=== PATIENT | female | born 1950 | race Caucasian/White ===

== ENCOUNTER 2020-05-26 06:10 | Outpatient (REF) | payer MEDICARE, SELFPAY ==
[2020-05-26 11:14] LABS: Hematocrit 45.3 % (37-47); Hemoglobin 15.2 g/dl (12.0-16.0); Mean Corpuscular HGB Conc 33.6 g/dl (31.0-35.0); Mean Corpuscular Hemoglobin 29.7 pg (27.0-33.0); Mean Corpuscular Volume 88.6 fL (80-98); Mean Platelet Volume 10.9 fL (9.4-12.3); Platelet Count 213 X10*3/uL (160-400); Red Blood Count 5.11 X10*6/uL (4.20-5.50); Red Cell Distribution Width 12.5 % (11.0-16.0); White Blood Count 4.6 X10*3/uL (4.8-10.8)
[2020-05-26 12:01] LABS: Alanine Aminotransferase 23 U/L (0-31); Albumin Level 4.3 g/dL (3.5-5.0); Alkaline Phosphatase 80 U/L (39-117); Anion Gap 13 (12-20); Aspartate Amino Transferase 22 U/L (5-31); Bilirubin Direct 0.3 mg/dL (0.0-0.5); Bilirubin Total 0.7 mg/dL (0.0-1.0); Blood Urea Nitrogen 20 mg/dL (9-16); Calcium 9.2 mg/dL (8.4-10.2); Carbon Dioxide 25 mmol/L (22-29); Chloride 104 mmol/L (96-108); Cholesterol 240 mg/dL; Estimated Glomerular Filt Rate > 60; Glucose Fasting 86 mg/dL (60-99); HDL Cholesterol 101 mg/dL; LDL Cholesterol Calculated 129 mg/dl; Magnesium 2.1 mg/dL (1.6-2.6); Potassium 4.2 mmol/l (3.3-5.1); Sodium 138 mmol/L (135-145); Total Protein 6.7 g/dL (6.5-8.0); Triglycerides 54 mg/dL
[2020-05-26 12:21] LABS: Vitamin D 25-OH Total 24.8 ng/mL (>30)
== END 2020-05-26 06:11 | disposition home or self-care (01) ==
LOC: HO.HMGCLDS 06:10
DX: E78.5 Hyperlipidemia, unspecified (principal); Z00.00 Encounter for general adult medical examination without abnormal findings
CPT/HCPCS: 36415; 80053; 80061; 80076; 82248; 82306; 83735; 85027

== ENCOUNTER 2022-01-20 08:22 | Outpatient (REF) | payer MEDICARE, SELFPAY ==
[2022-01-20 11:08] LABS: MANUAL DIFF FLAG NO
[2022-01-20 11:12] LABS: Basophils Percent Auto 0.4 % (0-2); Eosinophils Absolute Auto 0.2 X10*3/uL (0.0-0.4); Eosinophils Percent Auto 2.7 % (0-4); Hematocrit 44.4 % (37.0-47.0); Hemoglobin 15.1 g/dl (12.0-16.0); Imm Gran Abs Auto 0.01 X10*3/uL (0.00-0.03); Imm Gran Pct Auto 0.2 % (0.0-0.4); Lymphocytes Absolute Auto 2.3 X10*3/uL (1.2-4.9); Lymphocytes Percent Auto 41.8 % (20-40); Mean Corpuscular Hemoglobin 29.8 pg (27.0-33.0); Mean Corpuscular Volume 87.7 fL (80.0-98.0); Mean Platelet Volume 10.9 fL (9.4-12.3); Monocytes Absolute Auto 0.5 X10*3/uL (0.1-1.2); Monocytes Percent Auto 8.5 % (2-11); Neutrophils Absolute Auto 2.6 x10*3/uL (2.0-8.3); Neutrophils Percent Auto 46.4 % (45-73); Platelet Count 215 X10*3/uL (160-400); Red Blood Count 5.06 X10*6/uL (4.20-5.50); Red Cell Distribution Width 12.3 % (11.0-16.0); White Blood Count 5.5 X10*3/uL (4.8-10.8)
[2022-01-20 11:25] LABS: Alanine Aminotransferase 16 U/L (0-31); Albumin Level 4.4 g/dL (3.5-5.0); Alkaline Phosphatase 81 U/L (39-117); Anion Gap 13 (12-20); Aspartate Amino Transferase 18 U/L (5-31); Bilirubin Total 0.8 mg/dL (0.0-1.0); Blood Urea Nitrogen 24 mg/dL (9-16); Calcium 9.7 mg/dL (8.4-10.2); Carbon Dioxide 24 mmol/L (22-29); Chloride 106 mmol/L (96-108); Estimated Glomerular Filt Rate > 60; Glucose Random 94 mg/dL (60-115); Potassium 3.7 mmol/L (3.3-5.1); Sodium 139 mmol/L (135-145)
[2022-01-20 11:42] LABS: Estimated Average Glucose 103 mg/dL; Hemoglobin A1c % 5.2 %
[2022-01-20 11:47] LABS: TSH reflex Free T4 1.57 uIU/mL (0.32-4.0)
[2022-01-22 12:51] LABS: LDL Cholesterol Direct 131 mg/dL (<100)
== END 2022-01-20 08:23 | disposition home or self-care (01) ==
LOC: HO.HMGCLDS 08:22
PROVIDERS: PCP Internal Medicine; Visit Provider Internal Medicine
DX: R03.0 Elevated blood-pressure reading, without diagnosis of hypertension (principal); R35.0 Frequency of micturition; R51.9 Headache, unspecified
CPT/HCPCS: 36415; 80053; 83036; 83721; 84443; 85025

== ENCOUNTER 2023-04-22 09:33 | Outpatient (AMB) | payer MEDICARE, SELFPAY ==
--- NOTE | 2023-04-22 10:21 | MHC.OFFWIV ---
Intake Vital Signs 04/22/23 10:26 Height 5 ft 1 in Weight 50.802 kg BMI 21.2 BP 140/80 H Blood Pressure Location Lt brachial Position Sitting Pulse 80 Pulse Source Pulse Oximeter Temp 98.7 F Temp Source Oral Pulse Oximetry (%) 98 Oxygen Delivery Method Room Air Intake Visit Reasons: EP, cough, laryngitis (masked) Intake Note: Pt is here today for a cough and laryngitis Patient Tobacco Use Status: Never used Tobacco Allergies No Known Allergies Allergy (Mild, Verified 04/22/23 10:27) NONE Do you need a note to return to daycare/school/sports/work: No HPI HPI Comments History of Present Illness Details This is a 73-year-old female presenting to the clinic for evaluation of fatigue, malaise, cough productive of thick phlegm for the past few weeks patient reports symptoms 1st started on March 22, they initially were improving however seem to be getting worse over the past few days. Patient reports symptoms are worse at night. No associated fevers, chills, chest pain, shortness of breath, nausea, vomiting, diarrhea, headache, vision changes, dizziness. Has been at home now sick with similar symptoms. Physical exam benign Likely bronchitis due to a length of symptoms. Other differentials include viral illness. Unlikely PE, pneumonia, ACS. No signs of acute respiratory discharge Plan will discharge home with prednisone, doxycycline, albuterol and benzonatate Perles for cough. Educated patient on diagnosis and treatment plan, answered all question, patient verbalizes understanding. At this time patient will be discharged home, advised to return with new or worsening symptoms. Educated on worrisome signs and symptoms and when to return. At this time I feel comfortable discharge home. PFSH Family History Brother Substance use disorder Mental health disorder Social History Housing: House Alcohol intake: current Alcohol intake frequency: holidays/special occasions only Patient Tobacco Use Status: Never used Tobacco e-Cigarette/Vaping Use: Never Used service: No Current occupational status: retired Cognitive needs: No Hearing needs: No Vision needs: Yes Review of Systems Const Details: Constitutional : No Weight loss, No Fever, No Chills, +Fatigue, + Malaise ENT/Mouth : No sore throat, No Rhinorrhea Eyes: No Eye Pain, No Swelling, No Redness Cardiovascular : No Chest Pain, No SOB, No Dyspnea on Exertion, No Orthopnea, No Edema, No Palpitations Respiratory : + Cough, No Sputum, No Wheezing Gastrointestinal : No Nausea, No Vomiting, No Diarrhea, No Constipation, No abdominal Pain, No Hematochezia, No Melena Genitourinary : No Dysuria, No Urinary Frequency, No Hematuria, Musculoskeletal : No joint pain, No Myalgias, No Joint Swelling Skin : No Skin Lesions, No rash Neuro : No Weakness, No Numbness, No Dizziness, No Headache Psych : No Anxiety/Panic, No Depression All other systems reviewed and are negative All systems reviewed & are unremarkable except as noted in HPI and below Physical Exam Vital Signs: Last Vital Signs Temp 98.7 F 04/22/23 10:26 Pulse 80 04/22/23 10:26 BP 140/80 H 04/22/23 10:26 Pulse Ox 98 04/22/23 10:26 Oxygen Delivery Method Room Air 04/22/23 10:26 BMI result Body Mass Index 21.2 vss Appearance: Alert.? Oriented X3.? No acute distress.? Head: Normocephalic, atraumatic, no step-offs or deformities Eyes: Pupils equal, round and reactive to light.? ENT: Pharynx normal.?Midline uvula. Normal tonsils b/l. No exudate or edema Neck: Normal inspection.? Neck supple.? CVS: Normal heart rate and rhythm.? Pulses normal.? Respiratory: No respiratory distress.? Breath sounds normal.? Abdomen: Soft and nontender.? Skin: Skin warm and dry.? Normal skin color.? Normal skin turgor.? Extremities: No lower extremity edema.? No calf ttp. 5/5 strength to bilateral upper and lower extremities Neuro: Oriented X 3.? No motor deficit.? No sensory deficit. CN 2-12 intact Assessment & Plan Assessment & Plan (1) Bronchitis: Code(s): J40 - Bronchitis, not specified as acute or chronic Plan Take your medications as prescribed. If you were prescribed antibiotics today, it is important that you take your medication to their entirety, do not skip any doses, do not finish them early. Follow-up with your primary care provider this week. Return to the emergency department with new or worsening symptoms. Such as fevers, chills, chest pain, shortness of breath, nausea, vomiting, dizziness, headache, vision changes, lethargy In case of emergency call 911 Medications: New prednisone 20 mg PO DAILY 5 days 5 tabs 0RF albuterol sulfate 90 mcg/actuation 2 puffs inhalation Q6H PRN 6.7 grams 0RF shortness of breath or wheezing doxycycline hyclate 100 mg PO BID 7 days 14 caps 0RF benzonatate 100 mg PO BID PRN 14 caps 0RF cough Coding Level of Care Code Est Pt Level 3 (97272) Diagnoses Bronchitis J40
[2023-04-22 10:26] VITALS: BP 140/80; PULSE 80; TEMP 37.1; O2SAT 98; BMI 21.2
== END 2023-04-22 14:57 | disposition home or self-care (01) ==
PROVIDERS: PCP Internal Medicine; Visit Provider Physician Assistant
DX: J40 Bronchitis, not specified as acute or chronic (principal)
CPT/HCPCS: 99213

== ENCOUNTER 2023-07-21 07:59 | Outpatient (AMB) | payer MEDICARE, SELFPAY ==
[2023-07-21 08:20] VITALS: BP 130/86; PULSE 69; O2SAT 100; BMI 20.6
--- NOTE | 2023-07-21 08:20 | MHC.PC.OV ---
Vital Signs 07/21/23 08:20 Height 5 ft 1 in Weight 109 lb 4 oz BMI 20.6 Intake Visit Reasons: SWV G0439 04/02/2016 Allergies No Known Allergies Allergy (Mild, Verified 04/22/23 10:27) NONE Tobacco use date assessed: 01/21/22 PFSH Family History Brother Substance use disorder Mental health disorder Social History Housing: House Alcohol intake: current Alcohol intake frequency: holidays/special occasions only Patient Tobacco Use Status: Never used Tobacco e-Cigarette/Vaping Use: Never Used service: No Current occupational status: retired Cognitive needs: No Hearing needs: No Vision needs: Yes Physical exam (Primary Care) Tobacco/Smoking Status: Tobacco use Status Tobacco use date assessed 01/21/22 01/21/22 07:55 Patient Tobacco Use Status Never used Tobacco 04/22/23 10:21 e-Cigarette/Vaping Use Never Used 01/21/22 07:55 Coding
--- NOTE | 2023-07-21 08:23 | A.OFFVIS_ITS ---
Intake Vital Signs 07/21/23 08:20 07/21/23 08:32 Height 5 ft 1 in Weight 109 lb 4 oz BMI 20.6 20.6 BP 130/86 Blood Pressure Location Rt brachial Position Sitting Pulse 69 Pulse Source Pulse Oximeter Pulse Oximetry (%) 100 Oxygen Delivery Method Room Air Intake Visit Reasons: ALLEGRA G0439 04/02/2016 Allergies No Known Allergies Allergy (Mild, Verified 07/21/23 08:24) NONE Medication List - Last Reconciled 07/21/23 by Brendan Casey MD sumatriptan succinate 50 mg PO ONCE PRN 30 days HPI ALLEGRA G0439 04/02/2016 HPI Details Patient is a 73-year-old female who has been having cold-like symptoms for the past 3 weeks She said it started with sore throat than mild cough and then chest congestion then she lost the taste Patient still do not have any taste and is having yellow nasal discharge with mild chest congestion no chest pains no shortness a breath No nausea but mild diarrhea is there Patient has not had any recent COVID boosters She has not been tested for COVID as well Patient says that she does not want any immunizations She declined colonoscopy Declined mammogram Declined labs I am treating her with azithromycin Patient is to push fluids and may take [id number] cold remedies. HPI Comments History of Present Illness Details AWV Medical/social history reviewed Past medical history reviewed [place] of care / care team list updated Surgical/ hospitalization history reviewed Current medications including OTC and supplements reviewed Family history reviewed Tobacco controlled form updated Alcohol use form updated Illicit drug use in social history reviewed Current diagnosis of depression ?screening updated Appropriate PHQ 2/PHQ-9 completed . Vital signs reviewed Alcohol tobacco drug use reviewed and discussed . MMSE completed . ? Fall risk: ?Assessed Fall history: ?None Have you had any falls with injury in the past year?? No Have you had 2 or more falls in the past year?? No Fall risk assessment completed Home safety discussed with the patient Functional ability assessed and discussed and documented Activities of daily living reviewed and appropriate actions taken . HRA filled out by the patient and reviewed by provider and scanned . Appropriate written screening schedule established . Any health advise needed provided . Advance care planning discussed with the patient , necessary paperwork filled Examination IPPE/AWE: Balance intact [place]berg intact Tandem walk intact walk-in turn intact rise from sit to stand intact . ?Hearing ?whisper test pass . Medication list reviewed, patient is stable on medications All other providers patient is seeing discussed and noted . PFSH Family History Brother Substance use disorder Mental health disorder Social History Housing: House Alcohol intake: current Alcohol intake frequency: holidays/special occasions only Patient Tobacco Use Status: Never used Tobacco e-Cigarette/Vaping Use: Never Used service: No Current occupational status: retired Cognitive needs: No Hearing needs: No Vision needs: Yes Questionnaire Medicare Wellness Checkup [age] What gender do you identify with?: female During the past 4 weeks, how much have you been bothered by emotional problems such as feeling anxious, depressed, irritable, sad or downhearted, and blue?: not at all During the past 4 weeks, has your physical & emotional health limited your social activities with family, friends, neighbors, or groups?: slightly During the past 4 weeks, how much bodily pain have you generally had?: no pain During the past 4 weeks, was someone available to help you if you needed & wanted help?: yes, as much as I wanted During the past 4 weeks, what was the hardest physical activity you could do for at least 2 minutes?: very light Can you get to places out of walking distance without help? (For eg., can you travel alone on buses, taxis or drive your car?): Yes Can you go shopping for groceries or clothes without someone's help?: Yes Can you prepare your own meals?: Yes Can you do your housework without help?: Yes Because of any health problems, do you need the help of another person with your personal care needs such as eating, bathing, dressing or getting around the house?: No Can you handle your own money without help?: Yes During the past 4 weeks, how would you rate your health in general?: very good During the past 4 weeks how have things been going for you?: very well; could hardly better Are you having difficulties driving your car?: no Do you always fasten your seat belt when you are in a car?: yes, usually During past 4 weeks, have you been bothered by the following: never: Falling or dizzy when standing up, Sexual problems?, Trouble eating well? and Problems using the telephone? and seldom: Teeth or denture problems? and Tiredness or fatigue? Have you fallen 2 or more times in the past year?: Yes Are you afraid of falling?: No Are you a smoker?: no During the past 4 weeks, how many drinks of wine, beer, or other alcoholic beverages did you have?: 1 drink or less per week Do you exercise for about 20 minutes 3 or more times a week?: yes, most of the time Have you been given information to help with the following?: no: Hazards in your house that might hurt you? and no: Keeping track of your medications? How often do you have trouble taking medicines the way you have been told to take them?: I do not have to take medicine How confident are you that you can control & manage most of your health problems?: very confident What is your race?: White Mini Mental State Exam (MMSE) Orientation What is the (year) (season) (date) (day) (month)?: year, season, date, day and month Where are we (state) (county) (town or city) (hospital) (floor)?: state, county, town or city, hospital/clinic and floor Score Score: 10 Activity of Daily Living Bathing - sponge bath, tub bath or shower: receives no assistance (gets in/out by self, if usual bathing means Dressing - getting clothes from closets & drawers, including inner/outer garments & fasteners.: gets clothes & gets completely dressed without help Toileting - going to the 'toilet room' for urine/bowel elimination & cleaning self/arranging clothes: goes to toilet room, cleans self, arranges clothes without help Transfer: moves in & out of bed and chair without help (may use support object) Continence: controls urination/bowel movements completely by self Feeding: feeds self without help Total Score: 0 Information obtained from: patient Using telephone: independent Traveling: independent Shopping: independent Preparing meals: independent Housework: independent Taking medicine: independent Managing money: independent PHQ-9 Over the last 2 weeks, how often have you been bothered by any of the following problems? 1. Little interest or pleasure in doing things: several days 2. Feeling down, depressed, or hopeless: not at all 3. Trouble falling or staying asleep, or sleeping too much: several days 4. Feeling tired or having little energy: several days 5. Poor appetite or overeating: several days 6. Feeling bad about yourself - or that you are a failure or have let yourself or your family down: not at all 7. Trouble concentrating on things, such as reading the newspaper or watching television: not at all 8. Moving or speaking so slowly that other people could have noticed. Or the opposite - being so fidgety or restless that you have been moving around a lot more than usual: not at all 9. Thoughts that you would be better off or of hurting yourself in some way: not at all Total score: 4 Source: Developed by Drs. Carlos La, Megan Chávez, Brian Hdez and colleagues, with an educational pete from [employer]. Review of Systems Const All systems reviewed & are unremarkable except as noted in HPI and below Physical Exam Vital Signs: Last Vital Signs Pulse 69 07/21/23 08:20 BP 130/86 07/21/23 08:20 Pulse Ox 100 07/21/23 08:20 Oxygen Delivery Method Room Air 07/21/23 08:20 BMI result Body Mass Index 20.6 Const General: no acute distress HEENT Other: Mild throat erythema present, uvula midline, no exudate. Ears: mastoids normal General nose exam: Normal external nose present Throat: Yes posterior oropharynx abnormal Neck Neck: Yes no lymphadenopathy Resp Effort & Inspection: normal respiratory effort Auscultation: clear to auscultation bilaterally Cardio Other: S1 S2 Psych Mental Status: mental status grossly normal Assessment & Plan Assessment & Plan (1) Medicare annual wellness visit, subsequent: Code(s): Z00.00 - Encounter for general adult medical examination without abnormal findings (2) URI with cough and congestion: Code(s): J06.9 - Acute upper respiratory infection, unspecified Plan Patient is a 73-year-old female who has been having cold-like symptoms for the past 3 weeks She said it started with sore throat than mild cough and then chest congestion then she lost the taste Patient still do not have any taste and is having yellow nasal discharge with mild chest congestion no chest pains no shortness a breath No nausea but mild diarrhea is there Patient has not had any recent COVID boosters She has not been tested for COVID as well Patient says that she does not want any immunizations She declined colonoscopy Declined mammogram Declined labs I am treating her with azithromycin Patient is to push fluids and may take [id number] cold remedies. Medications: New azithromycin Take 2 tablets today then 1 daily 250 mg PO ONCE 6 tabs 0RF 5 days J06.9 - Acute upper respiratory infection, unspecified Quality Reporting (2019) Depression/Bipolar (159/160/161/177) PHQ-9: Total score: 4 Coding Level of Care Code Medicare Subsequent (G0439) Est Pt Level 3 (42812) Diagnoses Medicare annual wellness visit, subsequent Z00.00 URI with cough and congestion J06.9
[2023-07-21 08:32] VITALS: BMI 20.6
== END 2023-07-21 08:59 | disposition home or self-care (01) ==
PROVIDERS: PCP Internal Medicine; Visit Provider Internal Medicine
DX: Z00.00 Encounter for general adult medical examination without abnormal findings (principal); J06.9 Acute upper respiratory infection, unspecified
CPT/HCPCS: 99213; G0439

== ENCOUNTER 2024-05-09 08:00 | Outpatient (AMB) | payer MEDICARE, SELFPAY ==
[2024-05-09 08:08] VITALS: BP 128/80; PULSE 77; TEMP 36.6; O2SAT 98; BMI 20.8
--- NOTE | 2024-05-09 08:08 | AM.OFFWIN_ITS ---
Intake Vital Signs 05/09/24 08:08 Height 5 ft 1 in Weight 110 lb BMI 20.8 BP 128/80 Blood Pressure Location Rt brachial Position Sitting Pulse 77 Pulse Source Pulse Oximeter Temp 97.8 F Temp Source Oral Pulse Oximetry (%) 98 Oxygen Delivery Method Room Air Intake Visit Reasons: EP sinus congestion, cold symptoms Intake Note: Patient here for sinus congestion and cough that has been present since Apr 20. Patient Tobacco Use Status: Never used Tobacco Allergies No Known Allergies Allergy (Mild, Verified 05/09/24 08:11) NONE Do you need a note to return to daycare/school/sports/work: No HPI EP sinus congestion, cold symptoms HPI Details This note is constructed using voice recognition software. While every effort has been made to ensure accuracy, bullard operator errors may have been included. The patient is a 74 year old female who presents to the clinic today with concern for sinus infection. She notes that she has been having a cough and sinus congestion for the past nearly 3 weeks, that do not seem to be getting better. She denies fever, chills, shortness of breath. She reports that the sinus pressure is in the maxillary area left more than right, and feels like pressure pushing down into her teeth. She has been taking [id number] decongestants, and cough syrup to help with the cough. PFSH Family History Brother Substance use disorder Mental health disorder Social History Housing: House Alcohol intake: current Alcohol intake frequency: holidays/special occasions only Patient Tobacco Use Status: Never used Tobacco e-Cigarette/Vaping Use: Never Used service: No Current occupational status: retired Cognitive needs: No Hearing needs: No Vision needs: Yes Review of Systems Const All systems reviewed & are unremarkable except as noted in HPI and below Physical Exam Vital Signs: Last Vital Signs Temp 97.8 F 05/09/24 08:08 Pulse 77 05/09/24 08:08 BP 128/80 05/09/24 08:08 Pulse Ox 98 05/09/24 08:08 Oxygen Delivery Method Room Air 05/09/24 08:08 BMI result Body Mass Index 20.8 Const General: cooperative, healthy appearing, comfortable and no acute distress Orientation/consciousness: patient oriented x3 Limitations: no limitations HEENT Head: Yes normal to inspection Ears: hearing grossly normal bilaterally, external ears normal and TM's normal bilaterally General nose exam: Normal external nose present, Normal nares present, Abnormal mucous membranes and turbinates present erythematous and Nasal discharge present purulent Face and sinus: Yes normal facial exam and Yes sinus tenderness Mouth: Normal oral and palatal mucosa present and moist mucous membranes Throat: Yes posterior oropharynx normal, Yes tonsils normal and Yes uvula midline Eyes General: appearance normal, both eyes and all related structures Neck Neck: Yes normal visual inspection Resp Effort & Inspection: normal respiratory effort, able to speak in complete sentences, Actively coughing, no respiratory distress, not tachypneic, no tripod positioning and no use of accessory muscles Auscultation: clear to auscultation bilaterally Cardio Rate: regular rate Rhythm: regular rhythm Heart sounds: normal S1 and S2 Skin General skin exam: no rashes or lesions noted Neuro General: patient oriented x3 Extrem General: Yes normal to inspection and Yes no clubbing, cyanosis or edema Assessment & Plan Assessment & Plan (1) Sinusitis: Code(s): J32.9 - Chronic sinusitis, unspecified Qualifiers: Sinusitis location: maxillary Chronicity: acute Recurrence: non- recurrent Qualified Code(s): J01.00 - Acute maxillary sinusitis, unspecified Plan: Supportive measures encouraged and reviewed. Advised consideration of sinus rinse if needed. Antibiotic sent to requested pharmacy, advised patient to take antibiotics until completed and not to stop if feeling better, unless the patient has side effects. Advised patient to follow up with primary care provider with worsening or failure to resolve. Plan See above for full details and plan. Medications: New amoxicillin-pot clavulanate 875-125 mg 1 tab PO BID 10 days 20 tabs 0RF Coding Level of Care Code Est Pt Level 3 (58392) Diagnoses Acute non-recurrent maxillary sinusitis J01.00 Sinusitis location: maxillary Chronicity: acute Recurrence: non-recurrent
== END 2024-05-09 08:45 | disposition home or self-care (01) ==
PROVIDERS: PCP Internal Medicine; Visit Provider Registered Nurse
DX: J01.00 Acute maxillary sinusitis, unspecified (principal)

== ENCOUNTER → 2024-05-09 08:00 | Outpatient (BNVA) | payer MEDICARE, SELFPAY | PROVIDERS: PCP Internal Medicine; Visit Provider Registered Nurse | DX: J01.00 Acute maxillary sinusitis, unspecified (principal) | CPT/HCPCS: 99212 ==

== ENCOUNTER 2024-06-10 07:59 | Outpatient (REF) | payer MEDICARE, SELFPAY ==
[2024-06-10 11:08] LABS: Influenza A PCR NEGATIVE (Negative); Influenza B PCR NEGATIVE (Negative); Resp Syncy Virus RNA Qual PCR NEGATIVE (Negative); SARS COV2 PCR INHOUSE NEGATIVE (Negative)
--- OUTSIDE RECORDS SUMMARY | 2024-06-12 12:55 | XMS_ITS | Data Portability ---
Author Organization [place] - [facility] Address [address] [address] Assessment No assessment recorded. Plan of Treatment [...] instructions recorded. Reason for Referral None Reported. Results Created Date Observation Date Name Description Value Unit Range Abnormal Flag Note LastModifiedBy Organization Detail LastModifiedTime 02/21/2004/05/2023 imagi ng/di agnos tic resul t No observ ation record ed. [email or web address] Not Available 18:02:07 02/21/2004/05/2023 imagi ng/di agnos tic resul t No observ ation record ed. [email or web address] Not Available 18:02:10 02/21/20 24 08/11/2023 audio gram No observ ation record ed. [email or web address] Not Available 18:02:18 02/21/20 24 04/05/2023 audio gram No observ ation record ed. [email or web address] Not Available 18:02:22 02/21/20 24 04/28/2023 audio gram No observ ation record ed. [email or web address] Not Available 18:02:23 02/21/20 24 05/05/2023 audio gram No observ ation record ed. [email or web address] Not Available 18:02:24 02/21/20 24 05/23/2023 audio gram No observ ation record ed. [email or web address] Not Available 18:02:31 Result Notes None recorded. Problems Name Problem SNOMED Code Status Onset Date Resolution Date Notes Provider Name and Address Organization Details Recorded Time Sensorine ural hearing loss of bilateral ears [id number] Active 2022 Sensorine ural hearing loss, bilateral ; Note: Date Diagnosed : 04/05/2023 10:13 AM (H90.3) Not Available [facility] 03:24:21 Bilateral tinnitus 05860240052 02 Active 2022 Tinnitus, bilateral ; Note: Date Diagnosed : 04/05/2023 10:13 AM (H93.13) Not Available [facility] 03:24:21 Problem Notes None recorded. Procedures Surgical History None recorded. Imaging Results Imaging Date Name Status LastModified by Organiz ation Details LastModified Time 04/05/2023 imaging/diagno stic result completed Information not available 02/21/2024 18:02:07 04/05/2023 imaging/diagno stic result completed Information not available 02/21/2024 18:02:10 08/11/2023 audiogram completed Information not available 02/21/2024 18:02:18 04/05/2023 audiogram completed Information not available 02/21/2024 18:02:22 04/28/2023 audiogram completed Information not available 02/21/2024 18:02:23 05/05/2023 audiogram completed Information not available 02/21/2024 18:02:24 05/23/2023 audiogram completed Information not available 02/21/2024 18:02:31 Procedure Notes None recorded. Medical Equipment None Reported. [...] Diagnosis/Indication Diagnosis SNOMED-CT Code Diagnosis ICD10 Code [id number] A[facility]LIO FIT[facility]PAT[facility] [place] 100 [facility],[address] [place] [address] 02/09/2024 10:39:41 02/12/2024 07:15:44 Sensorineural hearing loss of bilateral ears [id number] H90.3 [id number] AURELIO FITZPATRICK [facility] [place] 100 [facility], [address] [place] [address] 05/03/2024 13:41:10 05/06/2024 07:06:28 Sensorineural hearing loss of bilateral ears 338944127 H90.3 Health Concerns Section Related Observation LastModified by Organization Detai ls LastModified Time None Recorded Concern Status LastModified by Organization Details LastModified Time None Recorded Advance Directives Directive None Recorded Payers Encounter Date Sequence Insurance Name Policy Number Policy Jones Covered Member ID Jones Member ID Guarantor Name 02/09/2024 2 [employer] HEALTHCARE OPTIONS (MEDICARE SUPPLEMENT) Vivian Shepard [id number] Vivian Shepard 02/09/2024 1 [place] [employer] GOVERNMENT SERVICES Vivian Shepard [id number] Vivian Shepard 05/03/2024 2 [employer] HEALTHCARE OPTIONS (MEDICARE SUPPLEMENT) Vivian Shepard [id number] Vivian Shepard 05/03/2024 1 [place]ATIONAL GOVERNMENT SERVICES Vivian Shepard [id number] Vivian Shepard Notes Date Note Type Note Provider Name and Address Organization Details Recorded Time 02/09/2024 text/html Concerns: Feels her own voice in tinny datalogging: dropped to 4 hours. Counseled on how this is most likely the cause of her voice being tinny but we can also make some changes to help tackle the issue in the mean time. Check/clean: GWO before and after cleaning .Changed filters and domes. Adjustments: decreased compressions ratios of HFs and decreased mid-high frequency 2 steps. She feels that her voice feels deeper after this change. FU: I want to see her again in 3 months to check on the changes I made today with the expectation that she is going to wear them more as well. CHRIS HUERTA, [facility] 100 [facility],[address], [address], [place] - [facility] 02/09/2024 11:03:02 05/03/2024 text/html Checking datalogging to make sure [...] No adjustments done today. Firmware updated.FU: Annuals. CHRIS HUERTA, [facility] 100 [facility],[place] [address], [place], [address], [place] - [facility] 05/03/2024 14:07:43 OBGyn Episode No OBEpisode recorded.
== END 2024-06-10 08:00 | disposition home or self-care (01) ==
LOC: HO.LAB 07:59
PROVIDERS: PCP Internal Medicine; Visit Provider Registered Nurse
DX: J06.9 Acute upper respiratory infection, unspecified (principal)
CPT/HCPCS: 0241U; 99212

== ENCOUNTER 2024-06-10 07:59 | Outpatient (AMB) | payer MEDICARE, SELFPAY ==
--- NOTE | 2024-06-10 08:02 | MHC.OFFWIV ---
Intake Vital Signs 06/10/24 08:03 Height 5 ft 1 in Weight 111 lb BMI 21.0 BP 130/82 Blood Pressure Location Rt brachial Position Sitting Pulse 86 Pulse Source Pulse Oximeter Temp 98.2 F Temp Source Oral Pulse Oximetry (%) 98 Oxygen Delivery Method Room Air Intake Visit Reasons: EP Sinus congestion Intake Note: Patient here for sinus congestion, runny nose and headache that has been present for about 2 weeks. Patient Tobacco Use Status: Never used Tobacco Allergies No Known Allergies Allergy (Mild, Verified 06/10/24 08:05) NONE Do you need a note to return to daycare/school/sports/work: No HPI EP Sinus congestion HPI Details This note is constructed using voice recognition software. While every effort has been made to ensure accuracy, commercial finance manager errors may have been included. The patient is a 74 year old female who presents to the clinic today with complaints of sinus congestion, runny nose, headache, mild sore throat with a past to 3 days. She notes that she was recently treated for a sinus infection about a month ago, symptoms got better. She denies fever, chills, cough, shortness of breath, body aches. 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 Her is also ill, with similar symptoms. She not tried any otc treatment. [facility] Family History Brother Substance use disorder Mental health disorder Social History Housing: House Alcohol intake: current Alcohol intake frequency: holidays/special occasions only Patient Tobacco Use Status: Never used Tobacco e-Cigarette/Vaping Use: Never Used service: No Current occupational status: retired Cognitive needs: No Hearing needs: No Vision needs: Yes Review of Systems Const All systems reviewed & are unremarkable except as noted in HPI and below Physical Exam Vital Signs: Last Vital Signs Temp 98.2 F 06/10/24 08:03 Pulse 86 06/10/24 08:03 BP 130/82 06/10/24 08:03 Pulse Ox 98 06/10/24 08:03 Oxygen Delivery Method Room Air 06/10/24 08:03 BMI result Body Mass Index 21.0 Const General: cooperative, healthy appearing, comfortable and no acute distress Orientation/consciousness: patient oriented x3 Limitations: no limitations HEENT Head: Yes normal to inspection Ears: hearing grossly normal bilaterally, external ears normal and TM's normal bilaterally General nose exam: Normal external nose present, Normal nares present and No nasal discharge present Face and sinus: Yes normal facial exam and Yes sinuses nontender Mouth: Normal oral and palatal mucosa present and moist mucous membranes Throat: Yes tonsils normal, Yes uvula midline and Yes posterior oropharynx abnormal (Erythema) Eyes General: appearance normal, both eyes and all related structures Neck Neck: Yes normal visual inspection Resp Effort & Inspection: normal respiratory effort, able to speak in complete sentences, Actively coughing, no respiratory distress, not tachypneic, no tripod positioning and no use of accessory muscles Auscultation: clear to auscultation bilaterally Cardio Jugular venous distension: no JVD Rate: regular rate Rhythm: regular rhythm Heart sounds: S1 normal heart sound present, S2 normal heart sound present, no click, no gallops, no murmurs and no rubs Skin General skin exam: no rashes or lesions noted, elasticity normal and turgor normal Neuro General: patient oriented x3 Extrem General: Yes normal to inspection and Yes no clubbing, cyanosis or edema Assessment & Plan Assessment & Plan (1) Upper respiratory tract infection: Code(s): J06.9 - Acute upper respiratory infection, unspecified Qualifiers: URI type: unspecified URI Qualified Code(s): J06.9 - Acute upper respiratory infection, unspecified Plan: Viral swab obtained to rule out Covid, Influenza, and RSV based on symptoms. Advised mask wearing while symptomatic and quarantine per current CDC guidelines. Reviewed at home support methods including hydration, humidification, vix vapor rub, sinus rinse, and otc treatment options. Discussed treatment with antiviral therapy for covid with paxlovid and with Tamiflu for influenza, including appropriate use and side effects, and need to start medication within 5 day of symptom onset, preferably within 48 hours of symptom onset. Patient wishes to proceed decline antiviral therapy. Advised follow up with worsening symptoms such as dyspnea at rest, which would require emergent evaluation. Plan See above for full details and plan. Orders: Orders SARS-CoV2/FLU/RSV Today J06.9 - Acute upper respiratory infection, unspecified Coding Level of Care Code Est Pt Level 3 (33212) Diagnoses Upper respiratory tract infection, unspecified type J06.9 URI type: unspecified URI
[2024-06-10 08:03] VITALS: BP 130/82; PULSE 86; TEMP 36.8; O2SAT 98; BMI 21.0
--- OUTSIDE RECORDS SUMMARY | 2024-06-12 12:44 | XMS_ITS | Continuity of Care Document ---
Author Organization [place] - [facility] Address [address] [address] Assessment No assessment recorded. Plan of Treatment Reminders Order Date Submit Date Provider Last Modified By Organization Details Last Modified Time Details Appointments None record ed. Lab None record ed. Referral None record ed. Procedures None record ed. Surgeries None record ed. Imaging None record ed. Medication Orders None record ed. Patient TargetsNo targets recorded. Patient InstructionsNo instructions recorded. Reason for Referral None Reported. Problems Name Problem SNOMED Code Status Onset Date Resolution Date Notes Provider Name and Address Organization Details Recorded Time Sensorine ural hearing loss of bilateral ears 522723278 Active 2022 Sensorine ural hearing loss, bilateral ; Note: Date Diagnosed : 04/05/2023 10:13 AM (H90.3) Not Available formerly [facility] 4 03:24:21 Bilateral tinnitus 12118836584 02 Active 2022 Tinnitus, bilateral ; Note: Date Diagnosed : 04/05/2023 10:13 AM (H93.13) Not Available formerly [facility] 4 03:24:21 Problem Notes None recorded. Medical Equipment None Reported. Medications Name Sig Start Date Stop Date Status Note LastModified by Organization Details LastModified Time azithromycin 250 mg tablet FOLLOW DIRECTIONS ON PACKAGING active Not Available Not Available No t Available valacyclovir 1 gram tablet TAKE 1 TABLET BY MOUTH THREE TIMES DAILY FOR 7 DAYS active Not Available Not Available N ot Available sumatriptan 50 mg tablet TAKE 1 TABLET BY MOUTH ONCE NEEDED FOR MIGRAINE TAKE WITH 1 ALEVE active Not Available Not Available No t Available doxycycline hyclate 100 mg tablet TAKE 1 TABLET BY MOUTH TWICE DAILY WITH FOOD AND A GLASS OF WATER FOR 10 DAYS active Not Available Not Available No t Available Vitals None Recorded Social History None recorded. Functional Status None recorded. Mental Status None recorded. Family History Nothing Reported. Medical History No medical history recorded. Gynecological HistoryNo gynecological history recorded. Obstetrics History GPAL:G 0 P 0 0 0 0 Past Encounters Encounter ID Performer Location Encounter Start Date Encounter Closed Date Diagnosis/Indication Diagnosis SNOMED-CT Code Diagnosis ICD10 Code [id number] CHRIS HUERTA [facility] [place] [address] [place] [address] 05/03/2024 13:41:10 05/06/2024 07:06:28 Sensorineural hearing loss of bilateral ears 613742636 H90.3 Health Concerns Section Related Observation LastModified by Organization Detai ls LastModified Time None Recorded Concern Status LastModified by Organization Details LastModified Time None Recorded Payers Encounter Date Sequence Insurance Name Policy Number Policy Jones Covered Member ID Jones Member ID Guarantor Name 05/03/2024 2 [employer] HEALTHCARE OPTIONS (MEDICARE SUPPLEMENT) Vivian Shepard [id number] Vivian Shepard 05/03/2024 1 [place] [employer] Vivian Shepard [id number] Vivian Shepard Notes Date Note Type Note Provider Name and Address Organization Details Recorded Time 05/03/2024 text/html Checking datalogging to make sure she is wearing them more often and that her voice sounds better.Concerns: No concerns today. She did note that she sometimes doesn't hear the start up tune, but I let her know that as long as she is hearing the microphones scratch thye are working.Check/teodoro n: Changed filters and domes, brushed microphones. GWO before and after cleaning.Adjustmen ts: No adjustments done today. Firmware updated.FU: Annuals. AURELIO FITZPATRICK 100 [facility], [place], [address], [facility] - [facility] 05/03/2024 14:07:43 OBGyn Episode No OBEpisode recorded.
== END 2024-06-10 08:44 | disposition home or self-care (01) ==
PROVIDERS: PCP Internal Medicine; Visit Provider Registered Nurse
DX: J06.9 Acute upper respiratory infection, unspecified (principal)

== ENCOUNTER 2024-06-20 08:04 | Outpatient (AMB) | payer MEDICARE, SELFPAY ==
--- OUTSIDE RECORDS SUMMARY | 2024-06-20 08:06 | XMS_ITS | Continuity of Care Document ---
Author Organization [place] - [facility] Address [address] [address] Assessment No assessment recorded. Plan of Treatment [...] Sensorine ural hearing loss of bilateral ears [id number] Active 2022 Sensorine ural hearing loss, bilateral ; Note: Date Diagnosed : 04/05/2023 10:13 AM (H90.3) Not Available [facility] 4 03:24:21 Bilateral tinnitus 97048945873 02 Active 2022 Tinnitus, bilateral ; Note: Date Diagnosed : 04/05/2023 10:13 AM (H93.13) Not Available [facility] 4 03:24:21 Problem Notes None recorded. Medical [...] Diagnosis/Indication Diagnosis SNOMED-CT Code Diagnosis ICD10 Code [id number] CHRIS HUERTA [facility] [place] [address] [place],[address] [place] [address] 05/03/2024 13:41:10 05/06/2024 07:06:28 Sensorineural hearing loss of bilateral ears 525696971 H90.3 Health Concerns Section Related Observation LastModified by Organization Detai ls LastModified Time None Recorded Concern Status LastModified by Organization Details LastModified Time None Recorded Payers Encounter Date Sequence Insurance Name Policy Number Policy Jones Covered Member ID Jones Member ID Guarantor Name 05/03/2024 2 [employer] HEALTHCARE OPTIONS (MEDICARE SUPPLEMENT) Vivian Shepard [id number] Vivian Shepard 05/03/2024 1 [place] [employer] Vivian Shepard [id number] Vivian Shepard Notes Date Note Type Note [...] today. Firmware updated.FU: Annuals. AURELIO FITZPATRICK 100 [facility] 100, [place], [address], [facility] - [facility] 05/03/2024 14:07:43 OBGyn Episode No OBEpisode recorded.
--- OUTSIDE RECORDS SUMMARY | 2024-06-20 08:06 | XMS_ITS | Data Portability ---
Author Organization [place] - [facility] Address [address] [address] Assessment No assessment recorded. Plan of Treatment [...] Sensorine ural hearing loss of bilateral ears 739035737 Active 2022 Sensorine ural hearing loss, bilateral ; Note: Date Diagnosed : 04/05/2023 10:13 AM (H90.3) Not Available [facility] 03:24:21 Bilateral tinnitus 91541129736 02 Active 2022 Tinnitus, bilateral ; Note: Date Diagnosed : 04/05/2023 10:13 AM (H93.13) Not Available [facility] 03:24:21 Problem Notes None recorded. Procedures [...] Diagnosis/Indication Diagnosis SNOMED-CT Code Diagnosis ICD10 Code [id number] AURELIO FITZPATRICK [facility] [place] 100 [facility],[address] [place] [address] 02/09/2024 10:39:41 02/12/2024 07:15:44 Sensorineural hearing loss of bilateral ears 506651792 H90.3 [id number] AURELIO FITZPATRICK [facility] [place] 100 [facility], [address] [place] [address] 05/03/2024 13:41:10 05/06/2024 07:06:28 Sensorineural hearing loss of bilateral ears 058331242 H90.3 Health Concerns Section Related Observation LastModified by Organization Detai ls LastModified Time None Recorded Concern Status LastModified by Organization Details LastModified Time None Recorded Advance Directives Directive None Recorded Payers Encounter Date Sequence Insurance Name Policy Number Policy Jones Covered Member ID Jones Member ID Guarantor Name 02/09/2024 2 [employer] HEALTHCARE OPTIONS (MEDICARE SUPPLEMENT) Vivian Shepard [id number] Vivian Shepard 02/09/2024 1 [place] [employer] GOVERNMENT SERVICES Vivian Shepard [id number] Vivian Shepard 05/03/2024 2 [employer]ARP HEALTHCARE OPTIONS (MEDICARE SUPPLEMENT) Vivian Shepard [id number] Vivian Shepard 05/03/2024 1 [place]ATIONAL GOVERNMENT SERVICES Vivian Shepard [id number] Vivian Shepard Notes Date Note Type Note [...] going to wear them more as well. HCRIS HUERTA, [facility] 100 [facility],[address], [address], [place] - [facility] 02/09/2024 11:03:02 05/03/2024 text/html Checking datalogging [...] done today. Firmware updated.FU: Annuals. CHRIS HUERTA, [facility] 100 [facility],[place] [address], [place], [address], [place] - [facility] 05/03/2024 14:07:43 OBGyn Episode No OBEpisode recorded.
[2024-06-20 08:10] VITALS: BP 112/74; PULSE 72; TEMP 36.4; O2SAT 99
--- NOTE | 2024-06-20 08:10 | MHC.OFFWIV ---
Intake Vital Signs 06/20/24 08:10 Weight 110 lb BP 112/74 Blood Pressure Location Rt brachial Position Sitting Pulse 72 Pulse Source Pulse Oximeter Temp 97.6 F Temp Source Oral Pulse Oximetry (%) 99 Intake Visit Reasons: EP congestion, a lot of phlegm Intake Note: Patient here for head and chest congestion that started a few days ago. Patient Tobacco Use Status: Never used Tobacco Allergies No Known Allergies Allergy (Mild, Verified 06/20/24 08:13) NONE Do you need a note to return to daycare/school/sports/work: No HPI EP congestion, a lot of phlegm HPI Details This note is constructed using voice recognition software. While every effort has been made to ensure accuracy, senior mechanical engineer errors may have been included. The patient is a 74 year old female who presents to the clinic today with ongoing cough, congestion, and secretions for the past several weeks. She was last seen in the clinic 10 days ago, and tested for viral URI, which was negative. She denies fever, chills. She reports that her symptoms got slightly better after the last time she was here, but got worse again. She is getting large amounts of secretions from nose. She has some mild sinus pressure. She has a cough, no shortness of breath. She is using extra hydration and steam to help with symptoms. [facility] Family History Brother Substance use disorder Mental health disorder Social History Housing: House Alcohol intake: current Alcohol intake frequency: holidays/special occasions only Patient Tobacco Use Status: Never used Tobacco e-Cigarette/Vaping Use: Never Used service: No Current occupational status: retired Cognitive needs: No Hearing needs: No Vision needs: Yes Review of Systems Const All systems reviewed & are unremarkable except as noted in HPI and below Physical Exam Vital Signs: Last Vital Signs Temp 97.6 F 06/20/24 08:10 Pulse 72 06/20/24 08:10 BP 112/74 06/20/24 08:10 Pulse Ox 99 06/20/24 08:10 Const General: cooperative, healthy appearing, comfortable and no acute distress Orientation/consciousness: patient oriented x3 Limitations: no limitations HEENT Head: Yes normal to inspection Ears: hearing grossly normal bilaterally, external ears normal and TM's normal bilaterally General nose exam: Normal external nose present, Normal nares present, Abnormal mucous membranes and turbinates present erythematous and Nasal discharge present purulent Face and sinus: Yes normal facial exam and Yes sinus tenderness Mouth: Normal oral and palatal mucosa present and moist mucous membranes Throat: Yes posterior oropharynx normal, Yes tonsils normal and Yes uvula midline Eyes General: appearance normal, both eyes and all related structures Neck Neck: Yes normal visual inspection Resp Effort & Inspection: normal respiratory effort, able to speak in complete sentences, Actively coughing, no respiratory distress, not tachypneic, no tripod positioning and no use of accessory muscles Auscultation: clear to auscultation bilaterally Cardio Rate: regular rate Rhythm: regular rhythm Heart sounds: normal S1 and S2 Skin General skin exam: no rashes or lesions noted Neuro General: patient oriented x3 Extrem General: Yes normal to inspection and Yes no clubbing, cyanosis or edema Assessment & Plan Assessment & Plan (1) Sinusitis: Code(s): J32.9 - Chronic sinusitis, unspecified Qualifiers: Sinusitis location: frontal Chronicity: acute Recurrence: non-recurrent Qualified Code(s): J01.10 - Acute frontal sinusitis, unspecified Plan: Supportive measures encouraged and reviewed. Advised consideration of sinus rinse if needed. Antibiotic sent to requested pharmacy, advised patient to take antibiotics until completed and not to stop if feeling better, unless the patient has side effects. Advised patient to follow up with primary care provider with worsening or failure to resolve. Plan See above for full details and plan. Medications: New amoxicillin-pot clavulanate 875-125 mg 1 tab PO BID 14 tabs 0RF 7 days Coding Level of Care Code Est Pt Level 3 (52141) Diagnoses Acute non-recurrent frontal sinusitis J01.10 Sinusitis location: frontal Chronicity: acute Recurrence: non-recurrent
== END 2024-06-20 08:51 | disposition home or self-care (01) ==
PROVIDERS: PCP Internal Medicine; Visit Provider Registered Nurse
DX: J01.10 Acute frontal sinusitis, unspecified (principal)

== ENCOUNTER → 2024-06-20 08:04 | Outpatient (BNVA) | payer MEDICARE, SELFPAY | PROVIDERS: PCP Internal Medicine; Visit Provider Registered Nurse | DX: J01.10 Acute frontal sinusitis, unspecified (principal) | CPT/HCPCS: 99212 ==

== ENCOUNTER 2024-08-09 08:12 | Outpatient (AMB) | payer MEDICARE, SELFPAY ==
[2024-08-09 08:21] VITALS: BP 132/80; PULSE 71; O2SAT 98; BMI 21.6
--- NOTE | 2024-08-09 08:21 | AM.OFFVISMDC ---
Intake Vital Signs 08/09/24 08:21 Height 5 ft 1 in Weight 114 lb 4 oz BMI 21.6 BP 132/80 Blood Pressure Location Lt brachial Position Sitting Pulse 71 Pulse Source Pulse Oximeter Pulse Oximetry (%) 98 Oxygen Delivery Method Room Air Intake Visit Reasons: ALLEGRA G0439 Allergies No Known Allergies Allergy (Mild, Verified 08/09/24 08:28) NONE Medication List - Last Reconciled 08/09/24 by Brendan Casey MD No Known Home Meds Do you need a note to return to daycare/school/sports/work: No HPI Ethan G0439 HPI Details - The patient is a 74-year-old female presenting with dizziness and memory impairment. - She reports a progressive increase in episodes of dizziness, primarily occurring while standing still, occasionally exacerbated by head movements. Dizziness is described as fleeting and occurs without warning. Last for a second - Memory lapses include difficulty recalling common words and problems completing arithmetic tasks, noted in activities such as managing her mother?s financials. - The patient expresses concern about the cognitive changes due to her family history of Alzheimer's Disease. - She reported having undergone a mammogram last year, with another scheduled shortly, and has recently visited for an eye exam. - Her preventative care includes no history of colonoscopy and limited vaccination status. Patient does not want to pursue with colonoscopy or get vaccinations - Despite leading an active lifestyle with activities such as [place], the patient notes minor dizziness during rapid turns. Problem List - Dizziness - Memory Impairment - History of Alzheimer?s Disease in the family - does not want to have colonoscopy on get vaccinations - need bone density with next mammogram ( patient goes to [facility]) Patient Instructions - Proceed with the neurology referral to investigate further causes of dizziness and memory impairment. - Discuss and complete the healthcare proxy documentation as advised. - Consider getting vaccinations for pneumonia and shingles based on conversation. - Consider discussing the need for a bone density scan when next mammogram is scheduled. - Continue scheduling routine preventative care appointments, including mammography. - consider colonoscopy Review of Systems. - General: No fever no chills - Neurological: No headaches no dizziness - Ear nose throat: No sore throat no hearing difficulty no ear pain - Cardiovascular: No syncope, no chest pain, no palpitations - Gastrointestinal: No nausea vomiting or diarrhea - Endocrine: No polyuria polydipsia no heat intolerance - Genitourinary: No dysuria , no blood in urine Physical Exam General: No acute distress HEENT: No acute findings Neck: Supple Respiratory system: Able to talk in full sentences, no audible wheeze cardiovascular: S1-S2 regular in rate and rhythm Gastrointestinal: No pain Extremities: No new findings 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 Vital signs reviewed Alcohol tobacco drug use reviewed and discussed . MMSE completed . ? Fall risk: ?Assessed Fall history: ?None Have you had any falls with injury in the past year?? No Have you had 2 or more falls in the past year?? No Fall risk assessment completed Home safety discussed with the patient Functional ability assessed and discussed and documented Activities of daily living reviewed and appropriate actions taken . HRA filled out by the patient and reviewed by provider and scanned . Appropriate written screening schedule established . Any health advise needed provided . Advance care planning discussed with the patient , necessary paperwork filled Examination IPPE/AWE: Balance intact Romberg intact Tandem walk intact walk-in turn intact rise from sit to stand intact . ?Hearing ?whisper test pass . Medication list reviewed, patient is stable on medications All other providers patient is seeing discussed and noted . PFSH Family History Brother Substance use disorder Mental health disorder Social History Housing: House Alcohol intake: current Alcohol intake frequency: holidays/special occasions only Patient Tobacco Use Status: Never used Tobacco e-Cigarette/Vaping Use: Never Used service: No Current occupational status: retired Cognitive needs: No Hearing needs: No Vision needs: Yes Questionnaire Medicare Wellness Checkup What [age] What gender do you identify with?: female During the past 4 weeks, how much have you been bothered by emotional problems such as feeling anxious, depressed, irritable, sad or downhearted, and blue?: slightly During the past 4 weeks, has your physical & emotional health limited your social activities with family, friends, neighbors, or groups?: not at all During the past 4 weeks, how much bodily pain have you generally had?: very mild pain During the past 4 weeks, was someone available to help you if you needed & wanted help?: yes, as much as I wanted During the past 4 weeks, what was the hardest physical activity you could do for at least 2 minutes?: very heavy Can you get to places out of walking distance without help? (For eg., can you travel alone on buses, taxis or drive your car?): Yes Can you go shopping for groceries or clothes without someone's help?: Yes Can you prepare your own meals?: Yes Can you do your housework without help?: Yes Because of any health problems, do you need the help of another person with your personal care needs such as eating, bathing, dressing or getting around the house?: No Can you handle your own money without help?: Yes During the past 4 weeks, how would you rate your health in general?: very good During the past 4 weeks how have things been going for you?: very well; could hardly better Are you having difficulties driving your car?: no Do you always fasten your seat belt when you are in a car?: yes, usually During past 4 weeks, have you been bothered by the following: never: Sexual problems?, Trouble eating well?, Teeth or denture problems? and Problems using the telephone?, sometimes: Tiredness or fatigue? and often: Falling or dizzy when standing up Have you fallen 2 or more times in the past year?: No Are you afraid of falling?: Yes Are you a smoker?: no During the past 4 weeks, how many drinks of wine, beer, or other alcoholic beverages did you have?: 1 drink or less per week Do you exercise for about 20 minutes 3 or more times a week?: yes, most of the time Have you been given information to help with the following?: yes: Hazards in your house that might hurt you? and yes: Keeping track of your medications? How often do you have trouble taking medicines the way you have been told to take them?: I always take medicine as prescribed How confident are you that you can control & manage most of your health problems?: very confident What is your race?: White Mini Mental State Exam (MMSE) Orientation What is the (year) (season) (date) (day) (month)?: year, season, date, day and month Where are we (state) (county) (town or city) (hospital) (floor)?: state, county, town or city, hospital/clinic and floor Score Score: 10 Activity of Daily Living Bathing - sponge bath, tub bath or shower: receives no assistance (gets in/out by self, if usual bathing means Dressing - getting clothes from closets & drawers, including inner/outer garments & fasteners.: gets clothes & gets completely dressed without help Toileting - going to the 'toilet room' for urine/bowel elimination & cleaning self/arranging clothes: goes to toilet room, cleans self, arranges clothes without help Transfer: moves in & out of bed and chair without help (may use support object) Continence: controls urination/bowel movements completely by self Feeding: feeds self without help Total Score: 0 Information obtained from: patient Using telephone: independent Traveling: independent Shopping: independent Preparing meals: independent Housework: independent Taking medicine: independent Managing money: independent PHQ-9 Over the last 2 weeks, how often have you been bothered by any of the following problems? 1. Little interest or pleasure in doing things: several days 2. Feeling down, depressed, or hopeless: not at all 3. Trouble falling or staying asleep, or sleeping too much: several days 4. Feeling tired or having little energy: several days 5. Poor appetite or overeating: several days 6. Feeling bad about yourself - or that you are a failure or have let yourself or your family down: not at all 7. Trouble concentrating on things, such as reading the newspaper or watching television: not at all 8. Moving or speaking so slowly that other people could have noticed. Or the opposite - being so fidgety or restless that you have been moving around a lot more than usual: not at all 9. Thoughts that you would be better off or of hurting yourself in some way: not at all Total score: 4 Depression Screening Interpretation: Negative Depression Screening Done: Yes 40538 - PHQ-9 Billing: Yes Source: Developed by Drs. Carlos La, Megan Chávez, Brian Hdez and colleagues, with an educational pete from [employer]. Physical Exam Vital Signs: Last Vital Signs Pulse 71 08/09/24 08:21 BP 132/80 08/09/24 08:21 Pulse Ox 98 08/09/24 08:21 Oxygen Delivery Method Room Air 08/09/24 08:21 BMI result Body Mass Index 21.6 Assessment & Plan Assessment & Plan (1) Medicare annual wellness visit, subsequent: Code(s): Z00.00 - Encounter for general adult medical examination without abnormal findings (2) Memory changes: Code(s): R41.3 - Other amnesia (3) Dizziness: Code(s): R42 - Dizziness and giddiness (4) Pre-hypertension: Code(s): R03.0 - Elevated blood-pressure reading, without diagnosis of hypertension Plan - The patient is a 74-year-old female presenting with dizziness and memory impairment. - She reports a progressive increase in episodes of dizziness, primarily occurring while standing still, occasionally exacerbated by head movements. Dizziness is described as fleeting and occurs without warning. Last for a second - Memory lapses include difficulty recalling common words and problems completing arithmetic tasks, noted in activities such as managing her mother?s financials. - The patient expresses concern about the cognitive changes due to her family history of Alzheimer's Disease. - She reported having undergone a mammogram last year, with another scheduled shortly, and has recently visited for an eye exam. - Her preventative care includes no history of colonoscopy and limited vaccination status. Patient does not want to pursue with colonoscopy or get vaccinations - Despite leading an active lifestyle with activities such as [place], the patient notes minor dizziness during rapid turns. Problem List - Dizziness - Memory Impairment - History of Alzheimer?s Disease in the family - does not want to have colonoscopy on get vaccinations - need bone density with next mammogram ( patient goes to [facility]) Patient Instructions - Proceed with the neurology referral to investigate further causes of dizziness and memory impairment. - Discuss and complete the healthcare proxy documentation as advised. - Consider getting vaccinations for pneumonia and shingles based on conversation. - Consider discussing the need for a bone density scan when next mammogram is scheduled. - Continue scheduling routine preventative care appointments, including mammography. - consider colonoscopy Orders: Referrals Neurology Referral R41.3 - Other amnesia, R42 - Dizziness and giddiness Quality Reporting (2019) Depression/Bipolar (159/160/161/177) PHQ-9: Total score: 4 Coding Level of Care Code Medicare Subsequent (G0439) Est Pt Level 4 (95480) Diagnoses Medicare annual wellness visit, subsequent Z00.00 Memory changes R41.3 Dizziness R42 Pre-hypertension R03.0 CPT Codes Advance Care Planning - Time spent: 1-15 minutes, on File ([id number]) Additional Codes PHQ-9 - 71744 - PHQ-9 Billing: Yes ([id number]) Advance Care Planning Advance Care Planning discussion: Completed/Scanned Forms completed: Health Care Proxy Time spent: 1-15 minutes, on File Actual minutes spent: 14
--- OUTSIDE RECORDS SUMMARY | 2024-08-09 08:23 | XMS_ITS | Data Portability ---
Author Organization [place] - [facility], Allergy Address [address] [address] Assessment No assessment recorded. Plan of Treatment [...] Sensorine ural hearing loss of bilateral ears [id number] Active 2022 Sensorine ural hearing loss, bilateral ; Note: Date Diagnosed : 04/05/2023 10:13 AM (H90.3) Not Available [facility] 03:24:21 Bilateral tinnitus [id number] 02 Active 2022 Tinnitus, bilateral ; Note: Date Diagnosed : 04/05/2023 10:13 AM (H93.13) Not Available [facility] 03:24:21 Problem Notes None recorded. Procedures [...] Diagnosis/Indication Diagnosis SNOMED-CT Code Diagnosis ICD10 Code Diagnosis Note [id number] AURELIO FITZPATRICK [place] [place] 100 [facility],[place] [address] [place] [address] 02/09/2024 10:39:41 02/12/2024 07:15:44 Sensorineural hearing loss of bilateral ears [id number] H90.3 [id number] CHRIS AURELIO HUERTA [place] 100 [facility], [address] [place] [address] 05/03/2024 13:41:10 05/06/2024 07:06:28 Sensorineural hearing loss of bilateral ears [id number] H90.3 Health Concerns Section Related Observation LastModified by Organization Detai ls LastModified Time None Recorded Concern Status LastModified by Organization Details LastModified Time None Recorded Advance Directives Directive None Recorded Payers Encounter Date Sequence Insurance Name Policy Number Policy Jones Covered Member ID Jones Member ID Guarantor Name 02/09/2024 2 [employer] HE[employer]CARE OPTIONS (MEDICARE SUPPLEMENT) Vivian Shepard [id number] Vivian hSepard 02/09/2024 1 [place] Vivian Shepard [id number] Vivian Shepard 05/03/2024 2 [employer] HEALTHCARE OPTIONS (MEDICARE SUPPLEMENT) Vivian Shepard [id number] Vivian Shepard 05/03/2024 1 [place] Vivian Shepard [id number] Vivian Shepard Notes Date Note Type Note [...] wear them more as well. CHRIS HUERTA, [facility] 100 [facility],[address], [address], [place] - [facility] 02/09/2024 11:03:02 05/03/2024 text/html Checking datalogging [...] done today. Firmware updated.FU: Annuals. CHRIS HUERTA, AUD 100 [facility],[place] [address], [place], [address], [place] - [facility] 05/03/2024 14:07:43 OBGyn Episode No OBEpisode recorded.
--- OUTSIDE RECORDS SUMMARY | 2024-08-09 08:23 | XMS_ITS | Clinical Summary ---
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 Role Phone Unavailable Primary Care Provider Unavailabl e Social History Tobacco Use Types Packs/Day Years Used Date Smoking Tobacco: Never Assessed Sex and Gender Information Value Date Recorded Sex Assigned at Not on file Gender Identity Not on file Sexual Orientation Not on file Job Start Date Occupation Industry Not on file Not on file Not on file Plan of Treatment Upcoming Encounters Date Type Department Care Team (Late st Contact Info) Description 10/31/2024 7:30 AM EDT [facility]ointment [facility] [address] [address] Health Maintenance Due Date Last Done Comments DTaP,Tdap,and Td Vaccines (1 - Tdap) 1968 Zoster Vaccines (1 of 2) 1999 Pneumococcal Vaccine: 65+ Years (1 of 1 - PCV) 2014 Colorectal Cancer Screening: Colonoscopy 06/05/2022 Depression Screening 06/05/2022 Falls Risk Assessment 06/05/2022 Hepatitis C Screening 06/05/2022 Medicare Annual Wellness Visit 06/05/2022 Osteoporosis Screening (Bone Density Screening) 06/05/2022 Social Influencers of Health Screening 06/05/2022 COVID-19 Vaccine ( - 2023- season) 2024 Influenza Vaccine (#1) 2024 RSV Immunization Patients 60+ Years Old (1 - 1-dose 75+ series) 2024 Breast Cancer Screening Discontinued 10/31/19 24, 10/24/2022, 10/21/2021, Additional history exists HIB Vaccines Aged Out No longer eligi ble based on patient's age to complete this topic HPV Vaccines Aged Out No longer eligi ble based on patient's age to complete this topic Hepatitis A Vaccines Aged Out No long er eligible based on patient's age to complete this topic Hepatitis B Vaccines Aged Out No long er eligible based on patient's age to complete this topic IPV Vaccines Aged Out No longer eligi ble based on patient's age to complete this topic MMR Vaccines Aged Out No longer eligi ble based on patient's age to complete this topic Meningococcal ACWY Vaccine Aged Out N o longer eligible based on patient's age to complete this topic RSV Immunization Patients Under 20 months Aged Out No longer eligible based on patient's age to complete this topic Varicella Vaccines Aged Out No longer eligible based on patient's age to complete this topic Procedures Procedure Name Priority Date/Time Associated Diagnosis Comments [facility] S[facility] Routine 10/31/2023 7:59 AM EDT Encounter for screening mammogram for malignant neoplasm of breast from Last 3 Months or Most Recently Relevant to Health Maintenance Results * [facility] S[facility] (10/31/2023 7:59 AM EDT) Anatomical Region Laterality Modality Mammography 10/31/2023 7:01 AM EDT Narrative 10/31/2023 7:59 AM EDT [facility] Diagnostic Imaging Department [address] [place] [address] Patient: ??HORACIO SHEPARD ?/Age/Sex: 1950 - 73 - F Unit#: ??[id number] ? Location/Status: ??SPDIMAM/REG CLI ? Mnemonic/Ordering Site: ??DIGSC/SPMAM Ordering Physician: ??BRENDAN ISSA MD Taniya Screening Digital - 10/31/23 - 85 Report Status:Signed HISTORY: The patient is a 73-year-old female presenting for routine screening mammography. FINDINGS: ??Full-field digital mammography of the breasts bilaterally consisting of tomosynthesis in MLO and CC projection is performed in the [employer]Fore 2000-D unit. ??Computer aided detection utilizing the iCAD system was utilized. The breasts are again seen to be composed of a combination of fatty and fibroglandular elements (scattered areas of fibroglandular density, category B density as calculated with [employer] software), as also demonstrated on prior studies most recently 10/24/2022 and most remotely 04/20/2017. ??There is no cluster of microcalcifications, mass, or area of architectural distortion. There is no skin thickening or nipple retraction. IMPRESSION: No mammographic evidence of malignancy. A negative mammogram in the presence of a clinically suspicious palpable abnormality does not preclude the possibility of malignancy or alter the indications for biopsy. BIRADS Code Class 1: ??Negative PQRI CPT II 3341F Code 67293, 40947 PQRI 225 CPT II 7025F Dictating Physician: ??OCTAVIO JOHNSON MD Electronically Signed by: ??OCTAVIO JOHNSON MD Dic Date/Time: ??10/31/23 0756 Sign date/Time: ??10/31/23 0759 Procedure Note Octavio Johnson MD - 02/19/2024 [facility] Diagnostic Imaging Department [address] [place] [address] Patient: ALEXANDERSERGIO AVILAElke Forbes D.O.B./Age/Sex: 1950 - 73 - F Unit#: [id number] Location/Status: [facility]/REG CLI Mnemonic/Ordering Site: [facility] Ordering Physician: BRENDAN ISSA MD Taniya Screening Digital - 10/31/23 - 745 Report Status:Signed HISTORY: The patient is a 73-year-old female presenting for routinescreening mammography. FINDINGS: Full-field digital mammography of the breasts bilaterallyconsisting of tomosynthesis in MLO and CC projection is performed in the i[employer] 2000-D unit. Computer aided detection utilizing the iCAD system wasutilized. The breasts are again seen to be composed of a combination of fatty and fibroglandular elements (scattered areas of fibroglandular density,category B density as calculated with [employer] software), as also demonstratedon prior studies most recently 10/24/2022 and most remotely 04/20/2017. Thereis no cluster of microcalcifications, mass, or area of architectural distortion.There is no skin thickening or nipple retraction. IMPRESSION: No mammographic evidence of malignancy. A negative mammogram in the presence of a clinically suspicious palpable abnormality does not preclude the possibility of malignancy or alter the indications for biopsy. BIRADS Code Class 1: Negative PQRI CPT II 3341F Code 23979, 08191 PQRI 225 CPT II 7025F Dictating Physician: OCTAVIO JOHNSON MD Electronically Signed by: OCTAVIO JOHNSON MD Dic Date/Time: 10/31/23 0756 Sign date/Time: 10/31/23 0759 Brendan Issa MD IMG BI PROCEDURES from Last 3 Months or Most Recently Relevant to Health Maintenance
== END 2024-08-09 08:59 | disposition home or self-care (01) ==
PROVIDERS: PCP Internal Medicine; Visit Provider Internal Medicine
DX: Z00.00 Encounter for general adult medical examination without abnormal findings (principal); R41.3 Other amnesia; R42 Dizziness and giddiness; R03.0 Elevated blood-pressure reading, without diagnosis of hypertension

== ENCOUNTER → 2024-08-09 08:12 | Outpatient (BNVA) | payer MEDICARE, SELFPAY | PROVIDERS: PCP Internal Medicine; Visit Provider Internal Medicine | DX: Z00.01 Encounter for general adult medical examination with abnormal findings (principal); R41.3 Other amnesia; R42 Dizziness and giddiness; R03.0 Elevated blood-pressure reading, without diagnosis of hypertension | CPT/HCPCS: 96127; 99212 ==

== ENCOUNTER 2024-09-18 15:17 | Outpatient (REF) | payer MEDICARE, SELFPAY ==
[2024-09-18 17:52] LABS: Vitamin B12 507 pg/mL (200-900)
== END 2024-09-18 15:18 | disposition home or self-care (01) ==
LOC: HO.LAB 15:17
PROVIDERS: PCP Internal Medicine; Visit Provider Psychiatry & Neurology Neurology
DX: G30.9 Alzheimer's disease, unspecified (principal)
CPT/HCPCS: 36415; 82607; 84443

== ENCOUNTER 2024-10-08 07:14 | Outpatient (REF) | payer MEDICARE, SELFPAY ==
--- NOTE | ~2024-10-08 | MR_ITS ---
EXAMINATION: MR BRAIN WITHOUT CONTRAST CLINICAL INFORMATION: Alzheimer's disease. COMPARISON: None available. TECHNIQUE: MRI of the brain was obtained using routine sequences without contrast. FINDINGS: No restricted diffusion. No acute intracranial hemorrhage, mass effect, midline shift, hydrocephalus or herniation. No susceptibility signal abnormality in the substancia nigra. Fernández-white matter differentiation is normal. Nonspecific, a few scattered punctate deep white matter hyperintense T2 FLAIR signal. Prominence of the extra-axial CSF spaces cerebral sulci and ventricles. Flow-void signal within the main cerebral vessels is normal. There is 8mm void signal in the left clinoid processes suggesting pneumatization. Sellar/suprasellar region demonstrated superiorly convex normal-sized pituitary gland. Craniocervical junction is intact and normal. MR/MR head/brain wo con IMPRESSION: No acute or structural brain abnormality. Nonspecific T2 FLAIR signal. Mild global cerebral atrophy. Electronically signed by: Cecilio Ferrrao MD 10/08/2024 09:02 AM EDT
--- OUTSIDE RECORDS SUMMARY | 2024-10-08 07:19 | XMS_ITS | Data Portability ---
Author Organization [place] - [facility], Allergy Address [address] [address] Assessment No assessment recorded. Plan of Treatment [...] Sensorine ural hearing loss of bilateral ears [id number] Active 2022 Sensorine ural hearing loss, bilateral ; Note: Date Diagnosed : 04/05/2023 10:13 AM (H90.3) Not Available [facility] 03:24:21 Bilateral tinnitus [id number] 02 Active 2022 Tinnitus, bilateral ; Note: Date Diagnosed : 04/05/2023 10:13 AM (H93.13) Not Available [facility] 03:24:21 Problem Notes None recorded. Procedures [...] SNOMED-CT Code Diagnosis ICD10 Code Diagnosis Note [id number] AURELIO FITZPATRICK [place] 100 [facility],[place] [address] [place] [address] 02/09/2024 10:39:41 02/12/2024 07:15:44 Sensorineural hearing loss of bilateral ears [id number] H90.3 [id number] CHRIS AURELIO HUERTA [place] 100 [facility], [address] [place] [address] 05/03/2024 13:41:10 05/06/2024 07:06:28 Sensorineural hearing loss of bilateral ears [id number] H90.3 Health Concerns Section Related Observation LastModified by Organization Detai ls LastModified Time None Recorded Concern Status LastModified by Organization Details LastModified Time None Recorded Advance Directives Directive None Recorded Payers Encounter Date Sequence Insurance Name Policy Number Policy Jones Covered Member ID Jones Member ID Guarantor Name 02/09/2024 2 [employer] HEALTHCARE OPTIONS (MEDICARE SUPPLEMENT) Vivian Shepard [id number] Vivian Shepard 02/09/2024 1 [place] Vivian Shepard [id number] Vivian Shepard 05/03/2024 2 [employer] HEALTHCARE OPTIONS (MEDICARE SUPPLEMENT) Vivian Shepard [id number] Vivian Shepard 05/03/2024 1 [place] Vivian Shepard [id number] Vivian Shepard Notes Date Note Type Note [...] wear them more as well. CHRIS HUERTA, [facility] 100 [facility],[address], [address], [place] - [facility] 02/09/2024 11:03:02 05/03/2024 text/html Checking datalogging [...] Firmware updated.FU: Annuals. CHRIS HUERTA, A[place] 100 [facility],[place] [address], [place], [address], [place] - [facility] 05/03/2024 14:07:43 OBGyn Episode No OBEpisode recorded.
--- OUTSIDE RECORDS SUMMARY | 2024-10-08 07:19 | XMS_ITS | Clinical Summary ---
Author Organization [facility] it Address [address] [place] [address] Care Team Providers Care Access Rep Name Role Phone Unavailable Primary Care Provider Unavailabl e Social History Tobacco Use Types Packs/Day Years Used Date Smoking Tobacco: Never Assessed Comments Unknown Sex and Gender Information Value Date Recorded Sex Assigned at Not on file Legal Sex Female 4:28 AM EST Gender Identity Not on file Sexual Orientation Not on file Plan of Treatment Upcoming Encounters Date Type Department Care Team (Late st Contact Info) Description 10/31/2024 7:30 AM EDT [facility]ment [facility] [address] [address] Health Maintenance Due Date Last Done Comments DTaP,Tdap,and Td Vaccines (1 - Tdap) 1968 Pneumococcal Vaccine: 50+ Years (1 of 1 - PCV) 1999 Zoster Vaccines (1 of 2) 1999 Colorectal Cancer Screening: Colonoscopy 06/05/2022 Depression Screening 06/05/2022 Falls Risk Assessment 06/05/2022 Hepatitis C Screening 06/05/2022 Medicare Annual Wellness Visit 06/05/2022 Osteoporosis Screening (Bone Density Screening) 06/05/2022 Social Influencers of Health Screening 06/05/2022 COVID-19 Vaccine ( - 2023- season) 2024 Influenza Vaccine (#1) 2024 RSV Immunization Adult Patients (1 - 1-dose 75+ series) 2024 Breast [...] patient's age to complete this topic Meningococcal B Vaccine Aged Out No l onger eligible based on patient's age to complete this topic RSV Immunization Patients Under 20 months Aged Out No longer eligible based on patient's age to complete this topic Varicella Vaccines Aged Out No longer eligible based on patient's age to complete this topic Procedures Procedure Name Priority Date/Time Associated Diagnosis Comments [facility] SCREENING DIGITAL Routine 10/31/2023 7:59 AM EDT Encounter for screening mammogram for malignant neoplasm of breast from Last 3 Months or Most Recently Relevant to Health Maintenance Results * [facility] SCREENING DIGITAL (10/31/2023 7:59 AM EDT) Anatomical Region Laterality Modality Mammography 10/31/2023 7:01 AM EDT Narrative 10/31/2023 7:59 AM EDT [facility] Diagnostic Imaging Department [address] [place], [place] [id number] Patient: ??HORACIO SHEPARD ?/Age/Sex: 1950 - 73 - F Unit#: ??[id number] ? Location/Status: ??SPDIMAM/REG CLI ? Mnemonic/Ordering Site: ??DIGSC/SPMAM Ordering Physician: ??BRENDAN ISSA MD Taniya Screening Digital - 10/31/23 - 745 Report Status:Signed HISTORY: The patient is a 73-year-old female presenting for routine screening mammography. FINDINGS: ??Full-field digital mammography of the breasts bilaterally consisting of tomosynthesis in MLO and CC projection is performed in the [employer] 2000-D unit. ??Computer aided detection utilizing the [employer]ac.[employer] system was utilized. The breasts are again seen to be composed of a combination of fatty and fibroglandular elements (scattered areas of fibroglandular density, category B density as calculated with [employer] software), as also demonstrated on prior studies [...] 1: ??Negative PQRI CPT II 3341F Code 93408, 06840 PQRI 225 CPT II 7025F Dictating Physician: ??OCTAVIO JOHNSON MD Electronically Signed by: ??OCTAVIO JOHNSON MD Dic Date/Time: ??10/31/23 0756 Sign date/Time: ??10/31/23 0759 Procedure Note Octavio Johnson MD - 02/19/2024 [facility] Diagnostic Imaging Department [address] [place] [id number] Patient: HORACIO SHEPARDO.B./Age/Sex: 1950 - 73 - F Unit#: [id number] Location/Status: SPDIMAM/REG CLI Mnemonic/Ordering Site: [facility] Ordering Physician: BRENDAN ISSA MD Taniya Screening Digital - 10/31/23 - 46 Report Status:Signed HISTORY: The patient is a 73-year-old female presenting for routinescreening mammography. FINDINGS: Full-field digital mammography of the breasts bilaterallyconsisting of tomosynthesis in MLO and CC projection is performed in the DVTel 2000-D unit. Computer aided detection utilizing the iCAD system wasutilized. The breasts are again seen to be composed of a combination of fatty and fibroglandular elements (scattered areas of fibroglandular density,category B density as calculated with [employer]com[employer] software), as also demonstratedon prior studies most [...] 1: Negative PQRI CPT II 3341F Code 80863, 60941 PQRI 225 CPT II 7025F Dictating Physician: OCTAVIO JOHNOSN MD Electronically Signed by: OCTAVIO JOHNSON MD Dic Date/Time: 10/31/23 0756 Sign date/Time: 10/31/23 0759 Brendan Issa MD IMG BI PROCEDURES Final Result from Last 3 Months or Most Recently Relevant to Health Maintenance Insurance MEDICARE [facility]
== END 2024-10-08 07:15 | disposition home or self-care (01) ==
LOC: HO.MRI 07:14
PROVIDERS: PCP Internal Medicine; Visit Provider Psychiatry & Neurology Neurology
DX: G30.9 Alzheimer's disease, unspecified (principal)
CPT/HCPCS: 70551

== ENCOUNTER → 2024-10-08 07:30 | Outpatient (BNV) | payer MEDICARE, SELFPAY | PROVIDERS: PCP Internal Medicine; Visit Provider Radiology Diagnostic Radiology | DX: G30.9 Alzheimer's disease, unspecified (principal) | CPT/HCPCS: 70551 ==

== ENCOUNTER 2025-02-19 12:50 | Outpatient (AMB) | payer MEDICARE, SELFPAY ==
[2025-02-19 12:53] VITALS: BP 140/80; PULSE 68; O2SAT 97; BMI 20.4
--- NOTE | 2025-02-19 12:53 | A.OFFPC_ITS ---
Vital Signs 02/19/25 12:53 Height 5 ft 1 in Weight 108 lb BMI 20.4 BP 140/80 H Blood Pressure Location Lt brachial Position Sitting Pulse 68 Pulse Source Pulse Oximeter Pulse Oximetry (%) 97 Intake Visit Reasons: med management (migraine/anti-anxiety) Allergies No Known Allergies Allergy (Mild, Verified 02/19/25 12:53) NONE Medication List - Last Reconciled 02/19/25 by Brendan Casey MD No Known Home Meds Tobacco use date assessed: 02/19/25 Fall risk assessment: No Falls in past year Last assessed Fall Risk: 02/19/25 Dental Screening Dental Screen Date: 02/19/25 Did you have a dental visit in the last 12 months?: Yes Did you have a dental problem in the last 6 months where you did not have access to dental care?: No Was dental information given to patient?: Patient has dentist HPI med management (migraine/anti-anxiety) HPI Details Chief Complaint The patient requests a refill of sumatriptan for migraines and lorazepam for anxiety associated with travel. History of Present Illness The patient is a 74-year-old female presenting with migraine and travel-related anxiety. Migraine: - The patient experiences migraines infr equently, approximately once a month. - Triggers may include certain foods, christina ch as processed meats and cheese. - The patient currently manages migraine s with 50 mg sumatriptan, requesting refill Travel-related anxiety: - The patient describes experiencing anx iety when traveling, particularly on buses or planes. - In the past, the patient was prescribe d Ativan (lorazepam) by a previous doctor and found it helpful. - The patient requests lorazepam to aid relaxation during travel, specifying a low dose as effective.. Medical History: - No specific past medical history was d etailed in the conversation. Diagnostic Results: From previous labs - Labs: - Hemoglobin: normal, no specifi c value provided. - Electrolytes: normal. - Kidney function: intact. - Fasting glucose: 89 mg/dL. - Liver enzymes: normal. - LDL cholesterol: 123 mg/dL. - Vitamin B12 level: 507. - TSH: 1.7. Problem List - Migraine - Travel-related anxiety Patient Instructions - Continue using sumatriptan as needed f or migraine management, considering potential triggers. - Prescription for lorazepam to be used minimally during travel for anxiety, following a specified dosage recommendation. - Monitor and adjust dietary intake to p otentially reduce migraine occurrences. Patient was notified about lorazepam, This medication is Habit forming and may cause Psychological dependence, It can cause drowsiness, dizziness, cognitive impairment , slowing of reflexes along with some other side effect . . Review of Systems - General: No fever no chills - Neurological: No headaches no dizziness - Ear nose throat: No sore throat no hearing difficulty no ear pain - Cardiovascular: No syncope, no chest pain, no palpitations - Gastrointestinal: No nausea vomiting or diarrhea - Endocrine: No polyuria polydipsia no heat intolerance - Genitourinary: No dysuria , no blood in urine Physical Exam - General: No acute distress - HEENT: No acute findings - Neck: Supple - Respiratory system: Able to talk in f ull sentences, no audible wheeze - Cardiovascular: S1-S2 regular in rate and rhythm - Gastrointestinal: No pain - Extremities: No new findings - 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 awake oriented x3 motor se nsory intact - Skin: Normal turgor [facility] Surgical History No pertinent past surgical history Family History Brother Substance use disorder Mental health disorder Social History Housing: House Alcohol intake: current Alcohol intake frequency: holidays/special occasions only Patient Tobacco Use Status: Never used Tobacco e-Cigarette/Vaping Use: Never Used service: No Current occupational status: retired Cognitive needs: No Hearing needs: No Vision needs: Yes Questionnaire Thrive Questionnaire Date Thrive assessed: 02/12/25 I am a: Patient What is your living situation today?: I have a steady place to live Within the past 12 months, did the food you bought not last and you didn't have the money to get more?: Never true Within the past 12 months, did you worry whether your food would run out before you got money to buy more?: Never true Do you have trouble paying for medicines?: No Do you have trouble getting transportation to medical appointments?: No Do you have trouble paying your heating and electricity bill?: No Do you have trouble taking care of your child, family member or friend?: No Do you have trouble with day-to-day activities such as bathing, preparing meals, shopping, managing finances, etc.?: No Are you currently unemployed and looking for a job?: No Are you interested in more education?: No Please select the resources that you would like help with: None Currently or been in a relationship where the following occur: No concerns reported THRIVE Score: 0 AUDIT C Alcohol Use Questionnaire (AUDIT-C) 1. How often do you have a drink containing alcohol?: Monthly or less 2. How many drinks containing alcohol do you have on a typical day when you are drinking?: 1 or 2 3. How often do you have six or more drinks on one occasion?: Never Total Score: 1 Score Reviewed/Action Taken: Yes KASSIE-7 AMB Questionnaire KASSIE-7 Date KASSIE - 7 assessed: 02/19/25 Feeling nervous, anxious, or on edge: 0 = Not at all Not being able to stop or control worryin = Not at all Worrying too much about different things: 0 = Not at all Trouble relaxin = Not at all Being so restless that it is hard to sit still: 0 = Not at all Becoming easily annoyed or irritable: 0 = Not at all Feeling afraid as if something awful might happen: 0 = Not at all Total KASSIE-7 score (0-4 normal; 5-9 mild; 10-14 moderate; 15-21 severe): 0 Source: Developed by Drs. Carlos La, Megan Chávez, Brian Hdez and colleagues, with an educational pete from [employer]. KASSIE-7 Assessment Billing KASSIE-7 Assessment Tool: KASSIE-7 Assessment 59865 Physical exam (Primary Care) Vital Signs: Last Vital Signs Pulse 68 02/19/25 12:53 BP 140/80 H 02/19/25 12:53 Pulse Ox 97 02/19/25 12:53 BMI result Body Mass Index 20.4 Tobacco/Smoking Status: Tobacco use Status Tobacco use date assessed 02/19/25 02/19/25 12:54 Patient Tobacco Use Status Never used Tobacco 02/19/25 12:54 e-Cigarette/Vaping Use Never Used 02/19/25 12:54 Thrive Assessment: Date of Thrive Assessment Date Thrive assessed 02/12/25 02/19/25 12:54 Currently or been in a relationship where the following occur: No concerns reported Coding Level of Care Code Est Pt Level 3 (22406) Diagnoses Migraine headache G43.909 Generalized anxiety disorder F41.1 Anxiety disorder type: generalized anxiety disorder Additional Codes KASSIE-7 Assessment Billing - KASSIE-7 Assessment Tool: KASSIE-7 Assessment 93781 ([id number]) Assessment & Plan Assessment & Plan (1) Migraine headache: Code(s): G43.909 - Migraine, unspecified, not intractable, without status migrainosus Category: Medical (2) Anxiety disorder: Code(s): F41.9 - Anxiety disorder, unspecified Category: Medical Qualifiers: Anxiety disorder type: generalized anxiety disorder Qualified Code(s): F41.1 - Generalized anxiety disorder Plan Chief Complaint The patient requests a refill of sumatriptan for migraines and lorazepam for anxiety associated with travel. History of Present Illness The patient is a 74-year-old female presenting with migraine and travel-related anxiety. Migraine: - The patient experiences migraines infrequently, approximately once a month. - Triggers may include certain foods, such as processed meats and cheese. - The patient currently manages migraines with 50 mg sumatriptan, requesting refill Travel-related anxiety: - The patient describes experiencing anxiety when traveling, particularly on buses or planes. - In the past, the patient was prescribed Ativan (lorazepam) by a previous doctor and found it helpful. - The patient requests lorazepam to aid relaxation during travel, specifying a low dose as effective.. Medical History: - No specific past medical history was detailed in the conversation. Diagnostic Results: From previous labs - Labs: - Hemoglobin: normal, no specific value provided. - Electrolytes: normal. - Kidney function: intact. - Fasting glucose: 89 mg/dL. - Liver enzymes: normal. - LDL cholesterol: 123 mg/dL. - Vitamin B12 level: 507. - TSH: 1.7. Problem List - Migraine - Travel-related anxiety Patient Instructions - Continue using sumatriptan as needed for migraine management, considering potential triggers. - Prescription for lorazepam to be used minimally during travel for anxiety, following a specified dosage recommendation. - Monitor and adjust dietary intake to potentially reduce migraine occurrences. Patient was notified about lorazepam, This medication is Habit forming and may cause Psychological dependence, It can cause drowsiness, dizziness, cognitive impairment , slowing of reflexes along with some other side effect . . Medications: New sumatriptan succinate 50 mg PO Q2-4H PRN 90 tabs 1RF migraine headache 30 days lorazepam 0.5 mg PO DAILY PRN 15 tabs 0RF anxiety 30 days
--- OUTSIDE RECORDS SUMMARY | 2025-02-19 13:40 | XMS_ITS | Clinical Summary ---
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 Name Role Phone Brendan Casey MD Primary Care Provider [phone] Social History Tobacco Use Types Packs/Day Years Used Date Smoking Tobacco: Never Assessed Comments No Sex and Gender Information Value Date Recorded Sex Assigned at Female 10/14/2024 3:16 PM EDT Legal Sex Female 4:28 AM EST Gender Identity Female 10/14/2024 3:16 PM EDT Sexual Orientation Straight 10/14/2024 3: 19 PM EDT Obstetrics History Last Filed Vital Signs Vital Sign Reading Time Taken Comments Blood Pressure - - Pulse - - Temperature - - Respiratory Rate - - Oxygen Saturation - - Inhaled Oxygen Concentration - - Weight 49.9 kg (110 lb) 10/31/2024 7:17 AM EDT Height 154.9 cm (5' 1 ) 10/31/2024 7:17 AM EDT Body Mass Index 20.78 10/31/2024 7:17 AM EDT Plan of Treatment Upcoming Encounters Date Type Department Care Team (Late st Contact Info) Description 11/03/2025 7:30 AM EDT [facility] [address] [address] Health Maintenance Due Date Last Done Comments DTaP,Tdap,and Td Vaccines (1 - Tdap) 1968 Pneumococcal Vaccine: 50+ Years (1 of 1 - PCV) 1999 Colorectal Cancer Screening: Colonoscopy 06/05/2022 Falls Risk Assessment 06/05/2022 Hepatitis C Screening 06/05/2022 Medicare Annual Wellness Visit 06/05/2022 Osteoporosis Screening (Bone Density Screening) 06/05/2022 Social Influencers of Health Screening 06/05/2022 COVID-19 Vaccine ( season) 2024 04/01/2021, 09/16/2020 RSV Immunization Adult Patients (1 - 1-dose 75+ series) 2024 Depression Screening 07/03/2024 Influenza Vaccine (#1) 2025 Zoster Vaccines Completed 04/19/2022, 02/17/2022 Breast Cancer Screening Discontinued 11/01/19, 10/31/2023, 10/24/2022, Additional history exists HIB Vaccines Aged Out [...] Procedure Name Priority Date/Time Associated Diagnosis Comments MG MAMMO DIGITAL SCREENING W ДМИТРИЙ BILAT Routine 10/31/2024 7:28 AM EDT Encounter for screening mammogram for breast cancer from Last 3 Months or Most Recently Relevant to Health Maintenance Results * MG Mammo Digital Screening w Дмитрий bilat (10/31/2024 7:28 AM EDT) Anatomical Region Laterality Modality Breast Bilateral Mammography 10/31/2024 9:46 AM EDT Impressions 10/31/2024 9:48 AM EDT No evidence of breast malignancy. BI-RADS CATEGORY: 1 - NEGATIVE RECOMMENDATION: Screening bilateral mammogram is recommended in 1 year. [facility]ammo Location: [facility], [address] [place] [address], [id number], . -------- FINAL REPORT -------- Dictated By: Aura Ashford Dictated Date: 10/31/2024 09:46 ET Assigned Physician: Aura Ashford Reviewed and Electronically Signed By: Aura Ashford Signed Date: 10/31/2024 09:48 ET Workstation ID: [id number] Transcribed By: Self Edit Transcribed Date: 10/31/2024 09:46 ET Narrative 10/31/2024 9:48 AM EDT CLINICAL: 74 years old, Female, routine annual exam. COMPARISON: 10/31/2023, 10/24/2022, 10/21/2021 04/26/2018 and 04/20/2017 TECHNIQUE: Bilateral MLO and CC views were obtained digitally with 3-D mammogram (digital breast tomosynthesis). Computer-aided detection was utilized in evaluation of this exam (CAD). FINDINGS: There is no evidence of suspicious mass or architectural distortion. No worrisome calcifications are evident. There has been no significant change from prior exam(s). BREAST DENSITY: B - There are scattered areas of fibroglandular density. Procedure Note Aura Ashford MD - 10/31/2024 CLINICAL: 74 years old, Female, routine annual exam. COMPARISON: 10/31/2023, 10/24/2022, 10/21/2021 04/26/2018 and 04/20/2017 TECHNIQUE: Bilateral MLO and CC views were obtained digitally with 3-Dmammogram (digital breast tomosynthesis). Computer-aided detection wasutilized in evaluation of this exam (CAD). FINDINGS: There is no evidence of suspicious mass or architectural distortion. Noworrisome calcifications are evident. There has been no significantchange from prior exam(s). BREAST DENSITY: B - There are scattered areas of fibroglandular density. IMPRESSION: No evidence of breast malignancy. BI-RADS CATEGORY: 1 - NEGATIVE RECOMMENDATION: Screening bilateral mammogram is recommended in 1 year. Mammo Location: [facility], [address], [place], [address], . -------- FINAL REPORT -------- Dictated By: Aura Ashford Dictated Date: 10/31/2024 09:46 ET Assigned Physician: Aura Ashford Reviewed and Electronically Signed By: Aura Ashford Signed Date: 10/31/2024 09:48 ET Workstation ID: [id number] Transcribed By: Self Edit Transcribed Date: 10/31/2024 09:46 ET us Self Referral Sppl IMG BI PROCEDURES Final Resul t from Last 3 Months or Most Recently Relevant to Health Maintenance Insurance [facility]ICARE [facility] Care Teams Diamond Die Polisher Relationship Specialty Start Date End Date Brendan Casey MD [address] [place] [address] PCP - General Internal Medicine 10/14/24
== END 2025-02-19 15:18 | disposition home or self-care (01) ==
LOC: HO.HMCC 12:51
PROVIDERS: PCP Internal Medicine; Visit Provider Internal Medicine
DX: G43.909 Migraine, unspecified, not intractable, without status migrainosus (principal); F41.1 Generalized anxiety disorder

== ENCOUNTER → 2025-02-19 12:50 | Outpatient (BNVA) | payer MEDICARE, SELFPAY | PROVIDERS: PCP Internal Medicine; Visit Provider Internal Medicine | DX: G43.909 Migraine, unspecified, not intractable, without status migrainosus (principal); F41.1 Generalized anxiety disorder | CPT/HCPCS: 96127; 99212 ==

== ENCOUNTER 2025-04-26 23:59 | Inpatient (IN) | payer MEDICARE, SELFPAY ==
--- NOTE | ~2025-04-26 | FL_ITS ---
EXAMINATION: FL GUIDANCE ONLY HISTORY: right stone COMPARISON: Correlation is made with a CT of the abdomen and pelvis with contrast dated 04/27/2025. TECHNIQUE: Fluoroscopy time: 18.9 seconds. Cumulative Dose: 2.2827 mGy. DAP: 0.9929 Gycm2 Images: 7. FINDINGS: Fluoroscopic spot films from a right ureterogram demonstrated a filling defect in the mid ureter consistent with the calculus noted on CT. Multiple air bubbles are noted within the ureter. The final images demonstrate placement of a nephroureteral stent. FL/FL guidance in OR IMPRESSION: Fluoroscopy during procedure. Please see procedure report for additional information. Electronically signed by: Carlos Easley MD 04/29/2025 07:06 AM EDT
--- NOTE | ~2025-04-26 | CT_ITS ---
CLINICAL HISTORY: RLQ pain CT abdomen and pelvis with contrast Comparison: CT - CT ABDOMEN PELVIS W IV CON - 04/27/25 01:34 EDT Findings: No consolidation or effusion. The gallbladder and solid organs are within normal limits. No left hydronephrosis or left hydroureter. The left kidney enhances normally. 10.5 mm obstructing calculus present at the proximal right ureter with [id number] right hydronephrosis. There is mildly delayed enhancement of the right kidney. No bowel obstruction, pneumoperitoneum, or pneumatosis. Mildly limited evaluation of the distal stomach related to gastric underdistention in this region. Pelvic contents unremarkable. The bladder is underdistended, mildly limiting its evaluation. Normal appendix. No acute fracture visualized. There is grade 1 anterolisthesis of L4 on L5. IMPRESSION: 10.5 mm obstructing calculus present at the proximal right ureter with [id number] right hydronephrosis. There is mildly delayed enhancement of the right kidney, consistent with obstructive uropathy. Normal appendix. Mild bowel wall thickening present at the distal stomach. This may be related to gastric underdistention. Mild gastritis is not excluded. Clinical correlation is advised. No bowel obstruction. This document has been electronically signed by: Armani Diaz MD on 04/27/2025 02:35:51
[2025-04-27 00:04] VITALS: BP 187/96; PULSE 63; RESP 16; TEMP 36.5; O2SAT 95; BMI 20.8
--- NOTE | 2025-04-27 00:13 | ED.ABDPAIN ---
HPI - Abdominal Pain General Chief Complaint: Abdominal Pain Stated Complaint: right side abd pain Time Seen by Provider: 04/27/25 00:03 Source: patient and family Mode of arrival: ambulatory Limitations: no limitations History of Present Illness ED Provider: Dr. Tabatha Hassan HPI narrative: Patient comes to the emergency room complaining of right lower quadrant pain that started after dinner. Prior to arrival, patient had an episode of vomiting. Patient denies any diarrhea, complaining of constipation. Last good bowel movement was yesterday. Patient states that for about a month, she has been having intermittent right lower quadrant/periumbilical pain. However, today after dinner, patient started having intense right lower quadrant pain. Patient denies any prior abdominal history is, denies history of kidney stones. Patient denies flank pain or back pain, denies hematuria or dysuria. Denies fever chills. Patient denies any medical history, states that she has been healthy all her life. Related Data Previous Rx's ?Medication ?Instructions ?Recorded lorazepam 0.5 mg tablet 0.5 mg PO DAILY PRN anxiety 30 02/19/25 days #15 tabs sumatriptan succinate 50 mg tablet 50 mg PO Q2-4H PRN migraine 02/19/25 headache 30 days #90 tabs Allergies Allergy/AdvReac Type Severity Reaction Status Date / Time No Known Allergies Allergy Mild NONE Verified 04/27/25 00:08 Review of Systems Review of Systems Constitutional : No Weight loss, No Fever, No Chills, No Night Sweats, No Fatigue, No Malaise ENT/Mouth : No Hearing loss, No Ear Pain, No Nasal Congestion, No Sinus Pain, No Hoarseness, No sore throat, No Rhinorrhea, No Swallowing Difficulty Eyes: No Eye Pain, No Swelling, No Redness, No Foreign Body, No Discharge, No Vision Changes Cardiovascular : No Chest Pain, No SOB, No Dyspnea on Exertion, No Orthopnea, No Edema, No Palpitations Respiratory : No Cough, No Sputum, No Wheezing, No Smoke Exposure, No Dyspnea Gastrointestinal : No Nausea, No Vomiting, No Diarrhea, No Constipation, complaining of right lower quadrant pain Genitourinary : no irregular bleeding, No Dysuria, No Urinary Frequency, No Hematuria, No Urinary Incontinence, No Urgency, No Flank Pain, No Urinary Flow Changes, No Hesitancy Musculoskeletal : No joint pain, No Myalgias, No Joint Swelling Skin : No Skin Lesions, No rash Neuro : No Weakness, No Numbness, No Paresthesias, No Loss of Consciousness, No Dizziness, No Headache Psych : No Anxiety/Panic, No Depression, No SI/HI/AH/VH, No Social Issues, Heme/Lymph: No Bruising, No Bleeding,No Lymphadenopathy Endocrine : No Polyuria, No Polydipsia, No Temperature Intolerance [facility] Past Medical History Medical History Anxiety disorder Migraine headache Surgical History No pertinent past surgical history Family History Family History Brother Substance use disorder Mental health disorder Social History Social History Housing: House Alcohol intake: current Alcohol intake frequency: holidays/special occasions only Patient Tobacco Use Status: Never used Tobacco e-Cigarette/Vaping Use: Never Used Advance Directives: No Advance Directives Information Provided: Yes Do you have a plan to hurt others: No Plan service: No Current occupational status: retired Cognitive needs: No Hearing needs: No Vision needs: Yes Physical Exam ED Exam Exam: Appearance: Alert. Oriented X3. Seems uncomfortable Eyes: Pupils equal, round and reactive to light. ENT: Pharynx normal. Neck: Normal inspection. Neck supple. No lymph nodes noted. No crepitus CVS: Normal heart rate and rhythm. Pulses normal. Normal S1 and S2 Respiratory: No respiratory distress. Breath sounds normal. No Wheezing. No rales Abdomen: Soft , tender to palpation in the right lower quadrant, mild rebound and guarding. No rigidity. No distention. Skin: Skin warm and dry. Normal skin color. Normal skin turgor. Extremities: No lower extremity edema. No Lacerations. No Rash Neuro: Oriented X 3. No motor deficit. No sensory deficit. Moving all extremities. No slurred speech. CN 2 through 12 grossly intact Psych: calm, cooperative, normal affect Vital Signs: Vital Signs - 24 hr 04/27/25 00:04 Temperature 97.7 F Pulse Rate 63 Respiratory Rate 16 Blood Pressure 187/96 H Pulse Oximetry 95 Oxygen Delivery Method Room Air BMI result Body Mass Index 20.8 Course Course Course Narrative: I discussed the physical exam with the patient, concerning for acute appendicitis. Patient receiving IV fluids, morphine, Zofran. CT scan pending Medical Decision Making Medical Decision Making [facility] Narrative: My interpretation of labs: No significant abnormality in patient's hematology or chemistry his positive for blood, no UTI CT scan shows a 3.5 mm obstructing calculus at the proximal right ureter with mid to moderate right hydronephrosis. After receiving morphine and ketorolac, patient is still having pain. Urology has been consulted recommendations: Admission by Medicine I discussed the patient with Dr. Wheeler Differential Diagnosis Differential Diagnoses: The differential diagnosis associated with the presentation includes (Acute appendicitis, ureterolithiasis) Admission/Observation Consideration of admission/observation: Escalation of care including admission/observation considered Consult Healthcare Provider Management of the patient was discussed with: Hospitalist and Correctional Officer Captain Lab Data [facility] Lab Attestation statement: I reviewed the patient's lab results. 04/27/25 00:21 04/27/25 00:21 Labs: Lab Results 04/27/25 04/27/25 Range/Units 00:21 01:41 WBC 8.4 (4.8-10.8) X10*3/uL RBC 4.55 (4.20-5.50) X10*6/uL Hgb 13.7 (12.0-16.0) g/dl Hct 39.0 (37.0-47.0) % MCV 85.7 (80.0-98.0) fL MCH 30.1 (27.0-33.0) pg MCHC 35.1 H (31.0-35.0) g/dl RDW 12.3 (11.0-16.0) % Plt Count 217 (160-400) X10*3/uL MPV 10.6 (9.4-12.3) fL Immature Gran % (Auto) 0.2 (0.0-0.4) % Neut % (Auto) 84.1 H (45-73) % Lymph % (Auto) 12.5 L (20-40) % [place] % (Auto) 2.9 (2-11) % Eos % (Auto) 0.1 (0-4) % Baso % (Auto) 0.2 (0-2) % Lymph # (Auto) 1.1 L (1.2-4.9) X10*3/uL [place] # (Auto) 0.2 (0.1-1.2) X10*3/uL Eos # (Auto) 0.0 (0.0-0.4) X10*3/uL Baso # (Auto) 0.0 (0.0-0.2) X10*3/uL Abs Immat Gran (auto) 0.02 (0.00-0.03) X10*3/uL Absolute Neuts (auto) 7.1 (2.0-8.3) x10*3/uL Absolute Nucleated RBC 0.000 (0.0-0.012) X10*3/uL Nucleated RBC % (auto) 0.0 (0.0-0.2) /100WBC Sodium 139 (135-145) mmol/L Potassium 3.8 (3.3-5.1) mmol/L Chloride 103 (96-108) mmol/L Carbon Dioxide 25 (22-29) mmol/L Anion Gap 15 (12-20) BUN 19 H (9-16) mg/dL Creatinine 0.72 (0.5-1.4) mg/dL Estim Creat Clear Calc 50.2 Estimated GFR > 60 Random Glucose 158 H (60-115) mg/dL Calcium 9.6 (8.4-10.2) mg/dL Total Bilirubin 0.5 (0.0-1.0) mg/dL Direct Bilirubin 0.2 (0.0-0.5) mg/dL AST 29 (5-31) U/L ALT 23 (0-31) U/L Alkaline Phosphatase 80 (39-117) U/L Total Protein 6.7 (6.5-8.0) g/dL Albumin 4.5 (3.5-5.0) g/dL Lipase 24 (8-78) U/L Urine Color Yellow Urine Appearance Cloudy Urine pH 8.5 (5.0-9.0) Ur Specific [place] 1.010 (1.005-1.025) Urine Protein Negative (Neg-Trace) mg/dL Urine Glucose (UA) Negative (Negative) mg/dL Urine Ketones Trace (Negative) mg/dL Urine Blood Trace H (Negative) Urine Nitrite Negative (Negative) Ur Leukocyte Esterase Negative (Negative) Urine RBC 6-10 H (0-2) /HPF Urine WBC 0-5 (0-5) /HPF Ur Squamous Epith Cells 0-2 (0-2) /HPF Urine Bacteria None Seen (None Seen) Hyaline Casts 0-2 (0-2) /LPF Independent Interpretation I performed an independent interpretation of an: CT Scan Radiology Impression Discussion of test interpretation with radiology: I have reviewed the radiologist's reading. Radiologist Impression: [place] [id number] CT Scan Report Signed Patient: Vivian Shepard MR#: [id number] : 1950 Acct:[id number] Age/Sex: 75 / F ADM Date: 04/27/25 Loc: .ED Attending Dr: Ordering Physician: Tabatha Hassan MD Date of Service: 04/27/25 Procedure(s): CT abdomen pelvis w IV con Accession Number(s): [id number] cc: Brendan Casey MD; Tabatha Hassan MD~ Report Number: [id number]: Total DLP = 334.00 mGy-cm Reason for Exam: RLQ pain CLINICAL HISTORY: RLQ pain CT abdomen and pelvis with contrast Comparison: CT - CT ABDOMEN PELVIS W IV CON - 04/27/25 01:34 EDT Findings: No consolidation or effusion. The gallbladder and solid organs are within normal limits. No left hydronephrosis or left hydroureter. The left kidney enhances normally. 10.5 mm obstructing calculus present at the proximal right ureter with trty-hi-kosncdmi right hydronephrosis. There is mildly delayed enhancement of the right kidney. No bowel obstruction, pneumoperitoneum, or pneumatosis. Mildly limited evaluation of the distal stomach related to gastric underdistention in this region. Pelvic contents unremarkable. The bladder is underdistended, mildly limiting its evaluation. Normal appendix. No acute fracture visualized. There is grade 1 anterolisthesis of L4 on L5. IMPRESSION: 10.5 mm obstructing calculus present at the proximal right ureter with eluk-sc-tpvlosnx right hydronephrosis. There is mildly delayed enhancement of the right kidney, consistent with obstructive uropathy. Normal appendix. Mild bowel wall thickening present at the distal stomach. This may be related to gastric underdistention. Mild gastritis is not excluded. Clinical correlation is advised. No bowel obstruction. Independent Historian Clinical information obtained from an independent historian. History obtained from or confirmed by: Spouse Medications Administered Discontinued Medications Generic Name Dose Route Start Last Admin Trade Name Michael PRN Reason Stop Dose Admin Sodium Chloride 1,000 mls @ 999 mls/hr 04/27/25 00:12 04/27/25 01:53 Ns IVCONT 04/27/25 01:12 Infused .Q1H1M ONE Infusion Iohexol 85 ml 04/27/25 01:49 04/27/25 01:49 Iohexol 350 Mg/Ml 100 Ml Infus..Btl IV 04/27/25 01:50 85 ml ONCE ONE Administration Ketorolac Tromethamine 30 mg 04/27/25 00:54 04/27/25 02:22 Ketorolac Tromethamine 30 Mg/Ml Vial IVPUSH 04/27/25 00:55 30 mg ONCE ONE Administration Morphine Sulfate 1 mg 04/27/25 00:11 04/27/25 00:41 Morphine Sulfate 4 Mg/Ml Cartridge IVPUSH 04/27/25 00:12 1 mg ONCE ONE Administration Protocol Ondansetron HCl 4 mg 04/27/25 00:11 04/27/25 00:40 Ondansetron Hcl 4 Mg/2 Ml Vial IVPUSH 04/27/25 00:12 4 mg ONCE ONE Administration Critical Care Time Critical Care Time Critical Care Time: Yes Total Critical Care Time: 60 Attestation: I have personally provided critical care time. Time includes review of lab data, radiology results, discussion with consultants, and monitoring for potential decompensation. Intervention performed as documented. Discharge Plan Discharge Clinical Impression: Urinary tract obstruction by kidney stone Patient Disposition: Admitted As Inpatient Print Language: Pakistani
[2025-04-27 00:25] LABS: MANUAL DIFF FLAG NO
--- OUTSIDE RECORDS SUMMARY | 2025-04-27 00:37 | XMS_ITS | Data Portability ---
Author Organization [place] - [facility], Allergy Address [address] [address] Assessment No assessment recorded. Plan of Treatment Reminders Order Date Submit Date Provider Last Modified By Organization Details Last Modified Time Details Appointments [facility] Fitting Follow Up (60) 2024 04:00P M AURELIO FITZPATRICK Not available Not available Not available Lab None recorded . Referral None recorded . Procedures None recorded . Surgeries None recorded . Imaging None recorded . Medication Orders None recorded . Patient TargetsNo targets recorded. Patient InstructionsNo instructions recorded. Reason for Referral None Reported. Results Created Date Observation Date Name Description Value Unit Range Abnormal Flag Note LastModifiedBy Organization Detail LastModifiedTime 02/21/2004/05/2023 imagi ng/di agnos tic resul t No observ ation record ed. [email or web address] Not Available 18:02:07 02/21/20 24 04/05/2023 imagi ng/di agnos tic resul t No [...] Sensorine ural hearing loss of bilateral ears [id number] Active 2022 Sensorine ural hearing loss, bilateral ; Note: Date Diagnosed : 04/05/2023 10:13 AM (H90.3) Not Available [facility] 03:24:21 Bilateral tinnitus [id number] 02 Active 2022 Tinnitus, bilateral ; Note: Date Diagnosed : 04/05/2023 10:13 AM (H93.13) Not Available [facility] 03:24:21 Problem Notes None recorded. Medical Equipment [...] Diagnosis SNOMED-CT Code Diagnosis ICD10 Code Diagnosis IMO Codes Diagnosis Note [id number] AUREILO FITZPATRICK [facility] [place] [address] [place], [place] [address] [address] 02/09/2024 10:39:41 02/12/2024 07:15:44 Sensorineural hearing loss of bilateral ears [id number] H90.3 [id number] AURELIO FITZPATRICK [facility] [place] [address] [facility],[place] [address] [place] [address] 05/03/2024 13:41:10 05/06/2024 07:06:28 Sensorineural hearing loss of bilateral ears [id number] H90.3 Health Concerns Section Related Observation LastModified by Organization Detai ls LastModified Time None Recorded Concern Status LastModified by Organization Details LastModified Time None Recorded Advance Directives Directive None Recorded Payers Insurance Date Sequence Insurance Name Policy Number Policy Jones Covered Member ID Jones Member ID Guarantor Name 03/28/2025 2 [employer] (MEDICARE SUPPLEMENT) Vivian Shepard [id number] Vivian Shepard 03/28/2025 1 MEDICARE B-[place]: [facility] [employer] Vivian Shepard [id number] Vivian Shepard Notes Date Note Type Note [...] to wear them more as well. CHRIS AURELIO HUERTA [address] [facility] [address], [address], [facility] - [facility] [...] done today. Firmware updated.FU: Annuals. CHRIS HUERTA, [facility] 100 [facility],[place] [address], [place], [address], [place] - [facility] 05/03/2024 14:07:43 OBGyn Episode No OBEpisode recorded.
--- OUTSIDE RECORDS SUMMARY | 2025-04-27 00:37 | XMS_ITS | Clinical Summary ---
Author Organization [facility] Address [address] [place] [address] Phone Care Team Providers Care Novelty Twister Operator Name Role Phone Brendan Casey MD Primary Care Provider [phone] Social History Tobacco Use Types Packs/Day Years [...] AM EDT Appointment [facility] [address] [address] Health Maintenance Due Date Last Done Comments DTaP,Tdap,and Td Vaccines (1 - Tdap) 1968 Pneumococcal Vaccine: 50+ Years (1 of 1 - PCV) 1999 Falls Risk Assessment 06/05/2022 Hepatitis C Screening 06/05/2022 Medicare Annual Wellness Visit 06/05/2022 Osteoporosis Screening (Bone Density Screening) 06/05/2022 Social Influencers of Health Screening 06/05/2022 RSV Immunization Adult Patients (1 - 1-dose 75+ series) 2024 Depression Screening 07/03/2024 COVID-19 Vaccine (3 - season) 2025 04/01/2021, 09/16/2020 Influenza Vaccine (#1) 2025 Zoster Vaccines Completed [...] Location: [facility], [address] [place] [address], [address], . -------- FINAL REPORT -------- Dictated By: Aura Ashford Dictated Date: 10/31/2024 09:46 ET Assigned Physician: Aura Ashford Reviewed and Electronically Signed By: Aura Ashford Signed Date: 10/31/2024 09:48 ET Workstation ID: [id number] Transcribed By: Self Edit Transcribed Date: 10/31/2024 [...] Location: [facility], [address] [place] [address], [address], . -------- FINAL REPORT -------- Dictated By: Aura Ashford Dictated Date: 10/31/2024 09:46 ET Assigned Physician: Aura Ashford Reviewed and Electronically Signed By: Aura Ashford Signed Date: 10/31/2024 09:48 ET Workstation ID: [id number] Transcribed By: Self Edit Transcribed Date: 10/31/2024 09:46 ET us Self Referral Sppl IMG BI PROCEDURES Final Resul t from Last 3 Months or Most Recently Relevant to Health Maintenance Insurance MEDICARE [facility] Care Teams Novelty Twister Operator Relationship Specialty Start Date End Date Brendan Casey MD [address] [place] [address] PCP - General Internal Medicine 10/14/24
[2025-04-27 00:39] LABS: Hematocrit 39.0 % (37.0-47.0); Hemoglobin 13.7 g/dl (12.0-16.0); Imm Gran Abs Auto 0.02 X10*3/uL (0.00-0.03); Imm Gran Pct Auto 0.2 % (0.0-0.4); Lymphocytes Absolute Auto 1.1 X10*3/uL (1.2-4.9); Mean Corpuscular HGB Conc 35.1 g/dl (31.0-35.0); Mean Corpuscular Hemoglobin 30.1 pg (27.0-33.0); Mean Corpuscular Volume 85.7 fL (80.0-98.0); NRBC Abs Auto 0.000 X10*3/uL (0.0-0.012); NRBC Pct Auto 0.0 /100WBC (0.0-0.2); Platelet Count 217 X10*3/uL (160-400); Red Blood Count 4.55 X10*6/uL (4.20-5.50); White Blood Count 8.4 X10*3/uL (4.8-10.8)
[2025-04-27 00:49] LABS: Alanine Aminotransferase 23 U/L (0-31); Albumin Level 4.5 g/dL (3.5-5.0); Alkaline Phosphatase 80 U/L (39-117); Anion Gap 15 (12-20); Aspartate Amino Transferase 29 U/L (5-31); Blood Urea Nitrogen 19 mg/dL (9-16); Calcium 9.6 mg/dL (8.4-10.2); Carbon Dioxide 25 mmol/L (22-29); Chloride 103 mmol/L (96-108); Creatinine Clr Calc Pharmacy 50.2; Estimated Glomerular Filt Rate > 60; Lipase 24 U/L (8-78); Potassium 3.8 mmol/L (3.3-5.1); Sodium 139 mmol/L (135-145); Total Protein 6.7 g/dL (6.5-8.0)
--- NOTE | 2025-04-27 00:55 | PC.NURSE ---
pt SPO2 noted to be 82% on the monitor, provider Jenny Hassan and this RN at the bedside assessing pt, pt placed on 2l NC, SPO2 improved to 94% immediately
--- NOTE | 2025-04-27 01:04 | PC.NURSE ---
pt noted to be laying supine, eyes closed, respirations even and unlabored, SPO2 100% on 2L NC
[2025-04-27 01:48] LABS: Appearance Urine Cloudy; Glucose Urine UA Negative (Negative); PH 8.5 (5.0-9.0); Specific Gravity - Urine 1.010 (1.005-1.025); UMIC TRIGGER UACC YES
[2025-04-27] MEDS: iohexoL 350 MG/ML 100 ML INFUS..BTL 85 ML IV (01:49)
--- NOTE | 2025-04-27 03:47 | PC.NURSE ---
pt up to restroom at this time. stated pain is now 2/10. verb understanding to call with any increase in pain
[2025-04-27 05:19] VITALS: BP 153/77; PULSE 62; RESP 15; TEMP 37.2; O2SAT 96
--- NOTE | 2025-04-27 06:00 | P.HPHOSP_ITS ---
History of Present Illness Date of Service: 04/27/25 Chief Complaint: Flank pain 75-year-old female with a past medical history of anxiety, migraine headaches presented to the hospital today with a chief complaint of right flank pain started after dinner. Associated nausea and vomiting. Denies any fevers and chills. Denies any urinary complaints. Denies any chest pain or palpitations. Review of all other systems is negative except mentioned above ER course: Per ER team, patient noted to have right flank tenderness; urinalysis negative; CT abdomen pelvis showed 10 mm ureteral obstructing stone; discussed with urology-suggested admission to Medicine Service. [facility] Medical History Anxiety disorder Migraine headache Family History Brother Substance use disorder Mental health disorder Surgical History No pertinent past surgical history Social History Housing: House Alcohol intake: current Alcohol intake frequency: holidays/special occasions only Patient Tobacco Use Status: Never used Tobacco e-Cigarette/Vaping Use: Never Used Advance Directives: No Advance Directives Information Provided: Yes Do you have a plan to hurt others: No Plan service: No Current occupational status: retired Cognitive needs: No Hearing needs: No Vision needs: Yes Meds Allergies Allergy/AdvReac Type Severity Reaction Status Date / Time No Known Allergies Allergy Mild NONE Verified 04/27/25 00:08 Physical Exam 2 Vital Signs and Narrative: Vital Signs: Last Vital Signs Temp 98.9 F 04/27/25 05:19 Pulse 62 04/27/25 05:19 Resp 15 04/27/25 05:19 BP 153/77 H 04/27/25 05:19 Pulse Ox 96 04/27/25 05:19 O2 Del Method Room Air 04/27/25 05:19 BMI result Body Mass Index 20.8 Gen: Appears be in no acute distress HEENT: NCAT, Moist mucosa. Pulmonary: Vesicular breath sounds, fair air entry CVS: Normal S1-S2 Abdomen: BS+, Soft, Nontender Extremities: Warm well perfused Neuro: Alert and awake. Results Labs 04/27/25 00:21 04/27/25 00:21 Labs: Laboratory Results - last 24 hr 04/27/25 04/27/25 00:21 01:41 MCV 85.7 MCH 30.1 MCHC 35.1 H RDW 12.3 Plt Count 217 MPV 10.6 Immature Gran % (Auto) 0.2 Neut % (Auto) 84.1 H Lymph % (Auto) 12.5 L [place] % (Auto) 2.9 Eos % (Auto) 0.1 Baso % (Auto) 0.2 Lymph # (Auto) 1.1 L [place] # (Auto) 0.2 Eos # (Auto) 0.0 Baso # (Auto) 0.0 Abs Immat Gran (auto) 0.02 Absolute Neuts (auto) 7.1 Absolute Nucleated RBC 0.000 Nucleated RBC % (auto) 0.0 Anion Gap 15 Estim Creat Clear Calc 50.2 Estimated GFR > 60 Random Glucose 158 H Calcium 9.6 Total Bilirubin 0.5 Direct Bilirubin 0.2 AST 29 ALT 23 Alkaline Phosphatase 80 Total Protein 6.7 Albumin 4.5 Lipase 24 Urine Color Yellow Urine Appearance Cloudy Urine pH 8.5 Ur Specific [place] 1.010 Urine Protein Negative Urine Glucose (UA) Negative Urine Ketones Trace Urine Blood Trace H Urine Nitrite Negative Ur Leukocyte Esterase Negative Urine RBC 6-10 H Urine WBC 0-5 Ur Squamous Epith Cells 0-2 Urine Bacteria None Seen Hyaline Casts 0-2 Assessment and Plan (1) Ureteral stone: Status: Acute Plan 75-year-old female with a past medical history of anxiety, migraine headaches presented to the hospital today with a chief complaint of right flank pain. Noted to have obstructing ureteral stone. Obstructing ureteral stone: Moderate right hydronephrosis: No UTI or SAY. Pain control Urology follow-up in a.m. Supportive care DVT prophylaxis: Subcu heparin Code status: Full code Quality Stroke Does the patient have a stroke diagnosis?: No VTE Prior VTE?: No VTE Risk Level:: Medical - moderate - high VTE Device Contraindication: Treatment Not Indicated VTE Drug Contraindication: N/A - Med Ordered
--- NOTE | 2025-04-27 08:00 | HO.NURTONUR ---
Vivian is a 75 F full code who presented with right flank pain, which was worse after eating. patient had nausea and vomiting. patient ct abd / pelvis showed a 10mm uretal obstructing stone. plan for patient is urology consult, pain control and supportive care. patient is alert and oriented, ambulatory with IV access.
[2025-04-27 08:09] VITALS: BMI 20.8
[2025-04-27 08:13] VITALS: BP 128/67; PULSE 66; RESP 20; O2SAT 95
[2025-04-27 08:35] VITALS: BP 138/72; PULSE 61; RESP 16; TEMP 36.7; O2SAT 95
--- NOTE | 2025-04-27 09:56 | PHA.MEDREC ---
Addendum entered by Radha Solomon RPh 04/27/25 10:24: reviewed by [facility]. Original Note: Pharmacy Consult ? Medication Reconciliation Pharmacy has completed the medication reconciliation. Confirmed medication list with patient.
--- NOTE | 2025-04-27 10:21 | PM.EVENT ---
Event Note Date of Service: 04/27/25 Event Note: Seen/examined. Admitted this am for flank pain related to 10.5 mm obstructing calculus present at the proximal right ureter with [id number]-[id number] right hydronephrosis, uro consult pending. Might need Cysto + stent Time Spent With Patient Time: Total time managing care of this patient today ____ minutes.
[2025-04-27] MEDS: 0.9 % Sodium Chloride Flush 3 ML SYRINGE IVFLUSH (15:27)
[2025-04-27 16:00] VITALS: BP 160/76; PULSE 75; RESP 16; TEMP 36.7; O2SAT 97
[2025-04-27 19:55] VITALS: BP 157/79; PULSE 62; RESP 18; TEMP 36; O2SAT 97
--- NOTE | 2025-04-27 20:20 | P.CNUR_ITS ---
History of Present Illness Consult details Consult date: 04/27/25 Narrative: CC: Right upper ureteric kidney stone 75-year-old female Presentation to hospital with right-sided flank pain associated nausea and vomiting Denies fever, chills, hematuria, dysuria Past medical history significant for migraine and anxiety distal Laboratories UA microhematuria, creatinine 0.7, calcium 9.6 Imaging - 10.5 mm obstructing calculus present at the proximal right ureter with [id number] right hydronephrosis. There is mildly delayed enhancement of the right kidney, consistent with obstructive uropathy. Imaging reviewed personally. Mild delay of enhancement with renal kidney. No biochemical evidence of obstruction. Creatinine in normal range. Imaging does suggest partial restriction with delay in flow. Recommend cystoscopy with stent placement Monday. Review of Systems 2 Constitutional: Constitutional: Reports as per HPI and Reports no additional constitutional complaints Cardiovascular: Cardiovascular: Reports as per HPI and Reports no additional cardiovascular complaints Respiratory: Respiratory: Reports as per HPI and Reports no additional respiratory complaints Gastrointestinal: Gastrointestinal: Reports as per HPI and Reports no additional gastrointestinal complaints Genitourinary: Genitourinary: Reports as per HPI Musculoskeletal: Musculoskeletal: Reports no additional musculoskeletal complaints and Reports as per HPI Neurologic: Reports system reviewed and no additional complaints, except as documented and Reports as per HPI PMFSH Past Medical History Medical History Anxiety disorder Migraine headache Family History Family History Brother Substance use disorder Mental health disorder Surgical History Surgical History No pertinent past surgical history Social History Social History Household Members: Spouse Housing: House Do you presently have visiting nurse or other home services: No Alcohol intake: current Alcohol intake frequency: holidays/special occasions only Patient Tobacco Use Status: Never used Tobacco e-Cigarette/Vaping Use: Never Used Currently Displaying Signs/Symptoms of Drug Intoxication Withdrawal: No Advance Directives: No Advance Directives Information Provided: Yes Do you have a plan to hurt others: No Plan Patient : No : No Poor oral hygiene: No service: No Current occupational status: retired Cognitive needs: No Hearing needs: No Vision needs: Yes Meds Allergies Allergy/AdvReac Type Severity Reaction Status Date / Time No Known Allergies Allergy Mild NONE Verified 04/27/25 00:08 Active Medications: Current Medications Acetaminophen (Acetaminophen 325 Mg Tablet) 650 mg PO Q6H PRN PRN Reason: Pain, Mild 1-3,fever,headache Calcium Carbonate (Calcium Carbonate 750 Mg Tab.Chew) 750 mg PO Q4H PRN PRN Reason: Heartburn Heparin Sodium (Porcine) (Heparin Sodium,Porcine 5,000 Unit/Ml Vial) 5,000 unit SUBCUT Q8H [facility] Last Admin: 04/27/25 19:10 Dose: Not Given Hydromorphone HCl (Hydromorphone Hcl 0.5 Mg/0.5 Ml Syringe) 0.5 mg IVPUSH Q4H PRN; Protocol PRN Reason: Pain, Severe (Pain Scale 7-10) Magnesium Hydroxide (Milk Of Magnesia 30 Ml Oral.Susp) 30 ml PO DAILY PRN PRN Reason: Constipation Melatonin (Melatonin 3 Mg Tablet) 6 mg PO BEDTIME PRN PRN Reason: Insomnia Polyethylene Glycol (Polyethylene Glycol 3350 17 Gm Powd.Pack) 17 gm PO DAILY PRN PRN Reason: Constipation Sodium Chloride (0.9 % Sodium Chloride Flush 3 Ml Syringe) 3 ml IVFLUSH QSHIFT [facility] Last Admin: 04/27/25 15:27 Dose: 3 ml Home Medications ?Medication ?Instructions ?Recorded ?Confirmed ?Last Taken ?Type cyclosporine 0.05 % eye drops in a 1 drp ophthalmic (e ye) BID 04/27/25 04/27/25 04/26/25 History dropperette lorazepam 0.5 mg tablet 0.5 mg PO DAILY PRN travel a nxiety 04/27/25 04/27/25 Unknown History Physical Exam 2 Vital Signs: Vital Signs: Last Vital Signs Temp 96.8 F 04/27/25 19:55 Pulse 62 04/27/25 19:55 Resp 18 04/27/25 19:55 BP 157/79 H 04/27/25 19:55 Pulse Ox 97 04/27/25 19:55 O2 Del Method Room Air 04/27/25 19:55 BMI result Body Mass Index 20.8 Const: General: cooperative, healthy appearing, comfortable and no acute distress Orientation/consciousness: patient oriented x3 HEENT: Face and sinus: Yes normal facial exam Mouth: moist mucous membranes Neck: Neck: Yes normal visual inspection, Yes full ROM and Yes trachea midline Chest: Chest palpation & inspection: normal inspection of the chest Resp: Effort & Inspection: normal respiratory effort, able to speak in complete sentences and no respiratory distress GI: Inspection: Yes normal to inspection Back/Spine/Pelvis: Cervical Spine: normal cervical lordosis Thoracic/Lumbar Spine: thoracic and lumbar spine normal to inspection Skin: General skin exam: no rashes or lesions noted Neuro: General: patient oriented x3, tone normal and moves all extremities Extrem: General: Yes normal to inspection and Yes capillary refill normal Results Labs 04/27/25 00:21 04/27/25 00:21 Labs: Abnormal lab results 04/27/25 04/27/25 Range/Units 00:21 01:41 MCHC 35.1 H (31.0-35.0) g/dl Neut % (Auto) 84.1 H (45-73) % Lymph % (Auto) 12.5 L (20-40) % Lymph # (Auto) 1.1 L (1.2-4.9) X10*3/uL BUN 19 H (9-16) mg/dL Random Glucose 158 H (60-115) mg/dL Urine Blood Trace H (Negative) Urine RBC 6-10 H (0-2) /HPF Short CBC 04/27/25 Range/Units 00:21 WBC 8.4 (4.8-10.8) X10*3/uL Hgb 13.7 (12.0-16.0) g/dl Hct 39.0 (37.0-47.0) % Plt Count 217 (160-400) X10*3/uL BMP 04/27/25 00:21 Sodium 139 Potassium 3.8 Chloride 103 Carbon Dioxide 25 BUN 19 H Creatinine 0.72 Calcium 9.6 Liver Function 04/27/25 Range/Units 00:21 Total Bilirubin 0.5 (0.0-1.0) mg/dL Direct Bilirubin 0.2 (0.0-0.5) mg/dL AST 29 (5-31) U/L ALT 23 (0-31) U/L Alkaline Phosphatase 80 (39-117) U/L Albumin 4.5 (3.5-5.0) g/dL Urine 04/27/25 Range/Units 01:41 Urine Color Yellow Urine Appearance Cloudy Urine pH 8.5 (5.0-9.0) Ur Specific [place] 1.010 (1.005-1.025) Urine Protein Negative (Neg-Trace) mg/dL Urine Glucose (UA) Negative (Negative) mg/dL All other labs normal. Assessment and Plan (1) Ureteral stone: Status: Acute Plan Risks, benefits and alternatives to therapy were discussed. These include but are not limited to infection, bleeding, damage to local organs and tissues, need for further interventions. Anesthetic risks regarding cardiac arrhythmia, blood clots, and potential mortality were discussed. The patient understands the typical recovery time and the outpatient nature of the procedure. After consideration of these risks the patient gives full informed consent and they wish to move ahead with the procedure. - cystoscopy, right retrograde, right stent placement Procedures Date of Service Date of Service: 04/27/25
[2025-04-28 03:34] VITALS: BP 140/81; PULSE 71; RESP 18; TEMP 35.9; O2SAT 97
[2025-04-28 06:53] LABS: MANUAL DIFF FLAG NO
[2025-04-28 06:57] LABS: Hematocrit 41.3 % (37.0-47.0); Hemoglobin 13.9 g/dl (12.0-16.0); Imm Gran Abs Auto 0.02 X10*3/uL (0.00-0.03); Imm Gran Pct Auto 0.4 % (0.0-0.4); Lymphocytes Absolute Auto 1.5 X10*3/uL (1.2-4.9); Mean Corpuscular HGB Conc 33.7 g/dl (31.0-35.0); Mean Corpuscular Hemoglobin 29.6 pg (27.0-33.0); Mean Corpuscular Volume 88.1 fL (80.0-98.0); NRBC Abs Auto 0.000 X10*3/uL (0.0-0.012); NRBC Pct Auto 0.0 /100WBC (0.0-0.2); Platelet Count 194 X10*3/uL (160-400); Red Blood Count 4.69 X10*6/uL (4.20-5.50); White Blood Count 5.3 X10*3/uL (4.8-10.8)
[2025-04-28 07:20] LABS: Alanine Aminotransferase 18 U/L (0-31); Albumin Level 3.8 g/dL (3.5-5.0); Alkaline Phosphatase 66 U/L (39-117); Anion Gap 9 (12-20); Aspartate Amino Transferase 22 U/L (5-31); Blood Urea Nitrogen 13 mg/dL (9-16); Calcium 9.1 mg/dL (8.4-10.2); Carbon Dioxide 26 mmol/L (22-29); Chloride 109 mmol/L (96-108); Creatinine Clr Calc Pharmacy 62.2; Estimated Glomerular Filt Rate > 60; Potassium 3.9 mmol/L (3.3-5.1); Sodium 140 mmol/L (135-145); Total Protein 6.0 g/dL (6.5-8.0)
[2025-04-28 07:47] VITALS: BP 160/89; PULSE 72; RESP 17; TEMP 36.6; O2SAT 98
[2025-04-28] MEDS: 0.9 % Sodium Chloride Flush 3 ML SYRINGE IVFLUSH (08:39)
--- NOTE | 2025-04-28 10:54 | P.PNIM_ITS ---
Subjective Subjective Date of Service: 04/28/25 Interval History: f/u k Obstructing ureteral stone: Moderate right hydronephrosis No uti NPO for stent today No pain at this time Physical Exam 2 Vital Signs: Vital Signs: Last Vital Signs Temp 97.9 F 04/28/25 07:47 Pulse 72 04/28/25 07:47 Resp 17 04/28/25 07:47 BP 160/89 H 04/28/25 07:47 Pulse Ox 98 04/28/25 07:47 O2 Del Method Room Air 04/28/25 07:47 BMI result Body Mass Index 20.8 Const: Other: General: AO X 3, no acute distress Resp: CTA bilateral CVS: S1,S2,RRR GI: +BS, NT, no distention Skin: No rash Neuro: motor grossly intact Psych: appropriate affect Objective Data Active Medications Acetaminophen (Acetaminophen 325 Mg Tablet) 650 mg PO Q6H PRN PRN Reason: Pain, Mild 1-3,fever,headache Last Admin: 04/28/25 03:38 Dose: 650 mg Documented By: MARY ELLEN Calcium Carbonate (Calcium Carbonate 750 Mg Tab.Chew) 750 mg PO Q4H PRN PRN Reason: Heartburn Heparin Sodium (Porcine) (Heparin Sodium,Porcine 5,000 Unit/Ml Vial) 5,000 unit SUBCUT Q8H [facility] Last Admin: 04/28/25 03:40 Dose: Not Given Documented By: MARY ELLEN Non-Admin Reason: Patient Refused Hydromorphone HCl (Hydromorphone Hcl 0.5 Mg/0.5 Ml Syringe) 0.5 mg IVPUSH Q4H PRN; Protocol PRN Reason: Pain, Severe (Pain Scale 7-10) Magnesium Hydroxide (Milk Of Magnesia 30 Ml Oral.Susp) 30 ml PO DAILY PRN PRN Reason: Constipation Melatonin (Melatonin 3 Mg Tablet) 6 mg PO BEDTIME PRN PRN Reason: Insomnia Polyethylene Glycol (Polyethylene Glycol 3350 17 Gm Powd.Pack) 17 gm PO DAILY PRN PRN Reason: Constipation Sodium Chloride (0.9 % Sodium Chloride Flush 3 Ml Syringe) 3 ml IVFLUSH QSHIFT [facility] Last Admin: 04/28/25 08:39 Dose: 3 ml Documented By: JEAN MARIENM Labs 04/28/25 05:42 04/28/25 05:42 Labs: Laboratory Results - last 24 hr 04/28/25 05:42 MCV 88.1 MCH 29.6 MCHC 33.7 RDW 12.3 Plt Count 194 MPV 11.0 Immature Gran % (Auto) 0.4 Neut % (Auto) 62.4 Lymph % (Auto) 28.8 [place] % (Auto) 6.9 Eos % (Auto) 0.9 Baso % (Auto) 0.6 Lymph # (Auto) 1.5 [place] # (Auto) 0.4 Eos # (Auto) 0.1 Baso # (Auto) 0.0 Abs Immat Gran (auto) 0.02 Absolute Neuts (auto) 3.3 Absolute Nucleated RBC 0.000 Nucleated RBC % (auto) 0.0 Anion Gap 9 L Estim Creat Clear Calc 62.2 Estimated GFR > 60 Random Glucose 105 Calcium 9.1 Total Bilirubin 0.8 AST 22 ALT 18 Alkaline Phosphatase 66 Total Protein 6.0 L Albumin 3.8 Assessment and Plan (1) Urinary tract obstruction by kidney stone: Status: Acute (2) Ureteral stone: Status: Acute Plan 75-year-old female with a past medical history of anxiety, migraine headaches presented to the hospital today with a chief complaint of right flank pain. Noted to have obstructing ureteral stone. Obstructing ureteral stone: Moderate right hydronephrosis: No UTI or SAY. Pain control Urology to do cystoscopy and stent today DVT prophylaxis: Subcu heparin Code status: Full code Possible dc after procedure today Quality Stroke Does the patient have a stroke diagnosis?: No VTE Prior VTE?: No VTE Risk Level:: Medical - moderate - high VTE Device Contraindication: Treatment Not Indicated VTE Drug Contraindication: N/A - Med Ordered
--- NOTE | 2025-04-28 10:57 | MHC.CM.PN ---
IMM delivered. Patient lives at home w/ . Functionally independent. Denies use of DME or services. PCP Brendan Casey MD Reports HCP is her , Fox. Copy requested. DP: Goal is home self care. transport. CM will continue to follow.
--- NOTE | 2025-04-28 11:52 | PC.NURSE ---
report called to ERAN Dang
[2025-04-28 14:11] VITALS: BP 166/90; PULSE 76; RESP 18; TEMP 36.6; O2SAT 98
--- NOTE | 2025-04-28 14:14 | HO.ANESPROP2 ---
[facility] Active Problems Active Problems: All Active Problems Ureteral stone (Acute) Urinary tract obstruction by kidney stone (Acute) Memory changes (Acute) Dizziness (Acute) URI with cough and congestion (Acute) Medicare annual wellness visit, subsequent (Acute) Upper respiratory tract infection (Acute) Frequent urination (Acute) Headache (Acute) Elevated blood pressure reading (Acute) Pre-hypertension (Acute) Exercise counseling (Acute) Needle phobia (Acute) Cough (Acute) Headache syndrome (Acute) Establishing care with new doctor, encounter for (Acute) Migraine headache (Acute) Anxiety disorder (Acute) Past Medical History Medical History Anxiety disorder Migraine headache Family History Family History Brother Substance use disorder Mental health disorder Family history of problems with anesthesia: No Surgical History Surgical History (Updated 04/28/25 @ 14:14 by Queta Molina RN) Hx of tonsillectomy Hx of arthroscopy of knee History of Problems with Anesthesia: No Social History Social History Household Members: Spouse Housing: House Are you a primary pharmacist critical care to a significant other at home: No Do you presently have visiting nurse or other home services: No Alcohol intake: current Alcohol intake frequency: holidays/special occasions only Patient Tobacco Use Status: Never used Tobacco e-Cigarette/Vaping Use: Never Used Currently Displaying Signs/Symptoms of Drug Intoxication Withdrawal: No Have you been hit, kicked, punched, or otherwise hurt by someone within the past year? If so, by whom?: No Are you DNR?: No Advance Directives: No Advance Directives Information Provided: Yes Do you have a plan to hurt others: No Plan Patient : No : No Poor oral hygiene: No service: No Current occupational status: retired Cognitive needs: No Hearing needs: No Vision needs: Yes Meds Allergies Allergy/AdvReac Type Severity Reaction Status Date / Time No Known Allergies Allergy Mild NONE Verified 04/28/25 14:14 Active Medications: Current Medications Acetaminophen (Acetaminophen 325 Mg Tablet) 650 mg PO Q6H PRN PRN Reason: Pain, Mild 1-3,fever,headache Last Admin: 04/28/25 03:38 Dose: 650 mg Calcium Carbonate (Calcium Carbonate 750 Mg Tab.Chew) 750 mg PO Q4H PRN PRN Reason: Heartburn Heparin Sodium (Porcine) (Heparin Sodium,Porcine 5,000 Unit/Ml Vial) 5,000 unit SUBCUT Q8H [facility] Last Admin: 04/28/25 03:40 Dose: Not Given Hydromorphone HCl (Hydromorphone Hcl 0.5 Mg/0.5 Ml Syringe) 0.5 mg IVPUSH Q4H PRN; Protocol PRN Reason: Pain, Severe (Pain Scale 7-10) Levofloxacin (Levaquin) 500 mg in 100 mls @ 100 mls/hr IV PREOP ONE Stop: 04/28/25 14:31 Magnesium Hydroxide (Milk Of Magnesia 30 Ml Oral.Susp) 30 ml PO DAILY PRN PRN Reason: Constipation Melatonin (Melatonin 3 Mg Tablet) 6 mg PO BEDTIME PRN PRN Reason: Insomnia Polyethylene Glycol (Polyethylene Glycol 3350 17 Gm Powd.Pack) 17 gm PO DAILY PRN PRN Reason: Constipation Sodium Chloride (0.9 % Sodium Chloride Flush 3 Ml Syringe) 3 ml IVFLUSH QSHIFT [facility] Last Admin: 04/28/25 08:39 Dose: 3 ml Home Medications ?Medication ?Instructions ?Recorded ?Confirmed ?Last Taken ?Type cyclosporine 0.05 % eye drops in a 1 drp ophthalmic (eye) BID 04/27/25 04/27/25 04/26/25 History dropperette lorazepam 0.5 mg tablet 0.5 mg PO DAILY PRN travel anxiety 04/27/25 04/27/25 Unknown History Exam Height,Weight and Vital Signs: Height 5 ft 1 in Weight 50 kg Last Vital Signs Temp 97.9 F 04/28/25 14:11 Pulse 76 04/28/25 14:11 Resp 18 04/28/25 14:11 BP 166/90 H 04/28/25 14:11 Pulse Ox 98 04/28/25 14:11 O2 Del Method Room Air 04/28/25 14:11 Pertinent Lab Results Pertinent Lab Results: Laboratory Tests 04/27/25 04/27/25 04/28/25 00:21 01:41 05:42 WBC 8.4 5.3 RBC 4.55 4.69 Hgb 13.7 13.9 Hct 39.0 41.3 MCV 85.7 88.1 MCH 30.1 29.6 MCHC 35.1 H 33.7 RDW 12.3 12.3 Plt Count 217 194 MPV 10.6 11.0 Immature Gran % (Auto) 0.2 0.4 Neut % (Auto) 84.1 H 62.4 Lymph % (Auto) 12.5 L 28.8 [place] % (Auto) 2.9 6.9 Eos % (Auto) 0.1 0.9 Baso % (Auto) 0.2 0.6 Lymph # (Auto) 1.1 L 1.5 [place] # (Auto) 0.2 0.4 Eos # (Auto) 0.0 0.1 Baso # (Auto) 0.0 0.0 Abs Immat Gran (auto) 0.02 0.02 Absolute Neuts (auto) 7.1 3.3 Absolute Nucleated RBC 0.000 0.000 Nucleated RBC % (auto) 0.0 0.0 Sodium 139 140 Potassium 3.8 3.9 Chloride 103 109 H Carbon Dioxide 25 26 Anion Gap 15 9 L BUN 19 H 13 Creatinine 0.72 0.58 Estim Creat Clear Calc 50.2 62.2 Estimated GFR > 60 > 60 Random Glucose 158 H 105 Calcium 9.6 9.1 Total Bilirubin 0.5 0.8 Direct Bilirubin 0.2 AST 29 22 ALT 23 18 Alkaline Phosphatase 80 66 Total Protein 6.7 6.0 L Albumin 4.5 3.8 Lipase 24 Urine Color Yellow Urine Appearance Cloudy Urine pH 8.5 Ur Specific [place] 1.010 Urine Protein Negative Urine Glucose (UA) Negative Urine Ketones Trace Urine Blood Trace H Urine Nitrite Negative Ur Leukocyte Esterase Negative Urine RBC 6-10 H Urine WBC 0-5 Ur Squamous Epith Cells 0-2 Urine Bacteria None Seen Hyaline Casts 0-2 Airway Mallampati Class: II TM Dist: >3cm Neck ROM: Full Heart: rrr Lungs: cta Assessment and Plan Assessment Anesthesia Assessment: Anesthesia Plan Discussed and Chart Reviewed Final Anesthetic Review Family History of Problems with Anesthesia: No History of Problems with Anesthesia: No NPO: Yes ASA Class: II Final Preanesthetic Review: No Changes in Pt Med Stat, Meds/Allgs Chart Reviewed and Consent Obtained/Reviewed Patient Risk: Low Procedure Risk: Low Anesthetic Plan Anesthetic Plan: GA Disposition: Standard PACU
--- NOTE | 2025-04-28 14:22 | PC.NURSE ---
report given to trisha gilbert rn. aware that surgeon and anesthesia need to consent patient and 3 areas to sign on preop record.
--- NOTE | 2025-04-28 17:18 | MHC.SHP ---
Pre-Procedural Eval Section A - 24 Hr Update-Section A only Date of Service: 04/28/25 The patient is an INPATIENT: No Changes since office visit: No Cold of Flu in the past 2 weeks, No New Medical Problems, No Changes in Medication and No Patient answered all questions The patient has been examined within 24 hours of the surgical procedure. The History & Physical has been completed within 30 days and I have reviewed it.: Yes Section B - Complete if H&P > 30 days Chief Complaint: obstructing ureteral stone Details of Present Illness: Cystoscopy, right retrograde, right ureteroscopy with laser lithotripsy Allergies: Allergies Allergy/AdvReac Type Severity Reaction Status Date / Time No Known Allergies Allergy Mild NONE Verified 04/28/25 14:14 Review of Systems Sugical H&P ROS: Negative: Constitution, Cardiovascular, Respiratory, Neurological, Psychiatric, Hem-Onc, Allergic/Immunologic, Gastrointestinal, Genitourinary, Musculoskeletal, Integumentary, Endocrine and Eyes/Ears/Nose/Throat Exam Surgical H&P Exam: Normal: HEENT, Normal: Heart, Normal: Lungs, Normal: Extremities, Normal: Abdomen, Normal: Skin and Normal: Neurological Plan Diagnosis/Plan: Unchanged I have reviewed the history and physical and performed a pertinent physical examination on my patient. No changes have occurred unless specified. Time Spent With Patient Time: Total time managing care of this patient today ____ minutes.
--- NOTE | 2025-04-28 18:22 | W.PM.OPN ---
Operative Note Operative Note Date of Service: 04/28/25 Narrative: PreOperative Diagnosis: Right mid ureteric impacted stone Post Operative Diagnosis: Right mid ureteric impacted stone Procedure: - cystoscopy, right retrograde - right dilatation of ureteric orifice under fluoroscopy - right ureteroscopy, laser lithotripsy, stone basketing - right stent placement Surgeon: Dr Leon Jerez Anesthesia: General Indications for procedure: Present through emergency room with right flank pain. Found to have 9 mm mid ureteric right stone with proximal hydro uretero nephrosis. Creatinine normal. Procedure: After informed consent was verified the patient was brought to the operating room and placed in a supine position. Anesthesia was administered per protocol. The patient was placed in a modified dorsal lithotomy position and prepped and draped in a sterile fashion. Safety pause time-out and side of surgery were confirmed. Images were available for review. Antibiotic administration confirmed. A 22 [place] cystoscope was inserted per urethra. The urethra was without abnormality. The bladder was normal in its entirety. Both ureteric orifices were seen in normal position. The right ureteric orifice was cannulated and a retrograde examination was performed. Filling defects seen mid ureter consistent with CT scan. Ureter tortuous. . A Sensor guidewire was placed up to the level of the renal pelvis under fluoroscopy. The rigid cystoscope was removed. A Lacey dilator was placed over the Sensor guidewire and used to dilate the ureteric orifice under fluoroscopy. The dilator was removed. The semi rigid ureteral scope was placed alongside the Sensor guidewire. The stone was encountered mid ureter.. Using a 200 micro thulium laser fiber the stone was broken into small pieces using a combination of hammer and dusting techiques using an Olympus thulium laser. Stone fragments were removed from the ureter using a 2.4 [place] ZeroTip basket. Once the fragments were removed a decision was made to place a ureteric stent. Based on the height of the patient a 6 Fr x 24 cm stent was used. The string was removed from the stent prior to placement. The rigid cystoscope was backloaded over the wire and advanced into the bladder. A 6 [place] by 24 cm double-J stent was placed into the renal pelvis and bladder under a combination of fluoroscopy and direct visualization. Proximal positioning of the stent was confirmed using fluoroscopy. The bladder was emptied. The patient tolerated the procedure well and was extubated in the operating room. They were transferred in stable condition to the recovery area. Pathology: stones Drains: Double J stent as described above
[2025-04-28 18:32] VITALS: BP 144/82; PULSE 60; RESP 17; TEMP 36.6; O2SAT 96
[2025-04-28 18:37] VITALS: BP 142/84; PULSE 66; RESP 15; TEMP 36.6; O2SAT 95
--- NOTE | 2025-04-28 18:54 | PM.DS ---
DS: Providers Provider Date of Service: 04/28/25 Date of admission: 04/27/25 05:58 Date of discharge: 04/28/25 Primary care physician: Brendan Casey MD Consults: 04/27/25 05:58 Consult to Urology Routine Consulting Provider: [facility] Reason for consultation: obstructing ureteral stone Attending physician on discharge: Leon Jerez DS: Diagnosis Discharge Diagnosis (1) Urinary tract obstruction by kidney stone: Status: Acute (2) Ureteral stone: Status: Acute DS: Summary Hospital Course Hospital Course: Hospital admission evening of 04/26 with sudden onset right flank pain. CT scan showed mid ureteric stone. Underwent ureteroscopy with laser lithotripsy and stent placement 04/[address] Jerez Tolerated procedure well Status at Discharge Functional status at discharge: independent ambulation Overall status at discharge: patient is back to baseline Time Attestation Total time managing care of this patient today: 15 mintues. Discharge Coordination Time (in mins): 10 Quality: Safe Use of Opioids Does Pt have an Active Cancer Diagnosis on the Problem List?: No Quality: Stroke Does the patient have a stroke diagnosis?: No Physical Exam Vital Signs: Vital Signs: Last Vital Signs Temp 98 F 04/28/25 18:37 Pulse 66 04/28/25 18:37 Resp 15 04/28/25 18:37 BP 142/84 H 04/28/25 18:37 Pulse Ox 95 04/28/25 18:37 O2 Del Method Room Air 04/28/25 18:37 BMI result Body Mass Index 20.8 DS: Data Data Completed and Pending Pending studies at discharge: Pending at discharge 04/28/25 18:33 Surgical [PTH] Routine Labs on day of discharge: Laboratory Results - last 24 hr 04/28/25 05:42 WBC 5.3 RBC 4.69 Hgb 13.9 Hct 41.3 MCV 88.1 MCH 29.6 MCHC 33.7 RDW 12.3 Plt Count 194 MPV 11.0 Immature Gran % (Auto) 0.4 Neut % (Auto) 62.4 Lymph % (Auto) 28.8 [place] % (Auto) 6.9 Eos % (Auto) 0.9 Baso % (Auto) 0.6 Lymph # (Auto) 1.5 [place] # (Auto) 0.4 Eos # (Auto) 0.1 Baso # (Auto) 0.0 Abs Immat Gran (auto) 0.02 Absolute Neuts (auto) 3.3 Absolute Nucleated RBC 0.000 Nucleated RBC % (auto) 0.0 Sodium 140 Potassium 3.9 Chloride 109 H Carbon Dioxide 26 Anion Gap 9 L BUN 13 Creatinine 0.58 Estim Creat Clear Calc 62.2 Estimated GFR > 60 Random Glucose 105 Calcium 9.1 Total Bilirubin 0.8 AST 22 ALT 18 Alkaline Phosphatase 66 Total Protein 6.0 L Albumin 3.[address] scan - abdomen: Attestation: I personally reviewed and interpreted this imaging study as follows: My impression: Right mid ureteric stone with tortuous proximal ureter Discharge Plan Discharge Anticipated Discharge Date/Time: 04/28/25 18:52 Patient Disposition: Home, Self-Care Discharge Diagnosis: Right ureteric stone Referrals: Brendan Casey MD [Primary Care Provider, Internal Medicine] Discharge Medications: New tamsulosin 0.4 mg capsule 0.4 mg PO BEDTIME 14 Days Qty: 14 0RF phenazopyridine [Pyridium] 100 mg tablet 100 mg PO TID PRN (Reason: Spasm) 4 Days Qty: 12 0RF naproxen 500 mg tablet 500 mg PO BID PRN (Reason: pain) 7 Days Qty: 14 0RF Continued cyclosporine 0.05 % dropperette 1 drp ophthalmic (eye) BID lorazepam 0.5 mg tablet 0.5 mg PO DAILY PRN (Reason: travel anxiety) sumatriptan succinate 50 mg tablet 50 mg PO Q2-4H PRN (Reason: migraine headache) 30 Days Qty: 90 1RF Discharge Orders: Discharge Order (Routine); Ordered 04/28/25 Ordered By: Leon Jerez Diet: Advance to usual diet Activity on Discharge: As tolerated Stand Alone Forms: Patient Portal Discharge page Print Language: Senegalese Care Plan Goals: Stone Health Concerns: Stone Plan of Treatment: Stent removal Assessment: Stone former Patient Instructions: Ureteroscopy (DC)
--- NOTE | 2025-04-29 09:35 | HO.POSTANES ---
Post Anesthesia Evaluation Post Anesthesia Evaluation Date of Service: 04/29/25 Anesthesia: Monitored Mental Status: Awake Pain Control: Satisfactory Nausea/Vomiting: None Hydration: Adequate Anesthesia-Related Issues: No Anes. Related Issues
== END 2025-04-28 19:42 | disposition home or self-care (01) | DRG 661 ==
LOC: HO.ED 04-27 02:58 → HO.EDOVER 04-27 06:03 → HO.S3 04-27 07:47
PROVIDERS: Urology; Admitting Provider Hospitalist; Emergency Provider Emergency Medicine; PCP Internal Medicine; Visit Provider Internal Medicine
PROC: 0T768DZ Dilation of Right Ureter with Intraluminal Device, Via Natural or Artificial Opening Endoscopic (ICD-10-PCS; principal; 2025-04-28 16:20)
DX: N13.2 Hydronephrosis with renal and ureteral calculous obstruction (principal); Z79.899 Other long term (current) drug therapy
CPT/HCPCS: 36415; 74177; 80048; 80053; 80076; 81001; 82365; 83690; 85025; 88300; 99285; C1758; C1769; C2617; J0131; J1100; J1885; J1956; J2003; J2270; J2405; J2704; J3010; Q9967

== ENCOUNTER → 2025-04-27 00:11 | Outpatient (BNV) | payer MEDICARE, SELFPAY | PROVIDERS: Emergency Provider Emergency Medicine; PCP Internal Medicine; Visit Provider Radiology Diagnostic Radiology | DX: N13.2 Hydronephrosis with renal and ureteral calculous obstruction (principal); K31.89 Other diseases of stomach and duodenum | CPT/HCPCS: 74177 ==

== ENCOUNTER → 2025-04-27 05:58 | Outpatient (BNV) | payer MEDICARE, SELFPAY | PROVIDERS: Admitting Provider Hospitalist; Emergency Provider Emergency Medicine; PCP Internal Medicine; Visit Provider Internal Medicine | DX: N20.0 Calculus of kidney (principal); N13.8 Other obstructive and reflux uropathy; N20.1 Calculus of ureter | CPT/HCPCS: 99232; 99499 ==

== ENCOUNTER → 2025-04-27 05:58 | Outpatient (BNV) | payer MEDICARE, SELFPAY | PROVIDERS: Admitting Provider Hospitalist; Emergency Provider Emergency Medicine; PCP Internal Medicine; Visit Provider Urology | DX: N20.1 Calculus of ureter (principal) | CPT/HCPCS: 99223 ==

== ENCOUNTER 2025-05-08 13:28 | Outpatient (AMB) | payer MEDICARE, SELFPAY ==
--- NOTE | 2025-05-08 13:28 | MHC.OFFVIS ---
Intake Visit Reasons: stent removal Intake Note: New Patient is present for Cystoscopy with stent removal Urology Rx: Pyridium, Tamsulosin Blood Thinners:none Imaging completed: Abd CT 04/27/[address] Agent Required: No Accompanied by: Self / Same As Patient Allergies No Known Allergies Allergy (Mild, Verified 05/08/25 13:39) NONE HPI Comments Details: iVvian is a pleasant female. She is a patient of Dr. Casey. She is seen for the following urologic conditions - nephrolithiasis Here for stent removal Stone composition calcium oxalate monohydrate 80% Recommend increased fluid intake with lemon juice Three-month follow-up renal ultrasound Nephrolithiasis Recent to hospital with right-sided flank pain associated nausea and vomiting Laboratories UA microhematuria, creatinine 0.7, calcium 9.6 Imaging - 10.5 mm obstructing calculus present at the proximal right ureter with bpxj-da-fkpfmsle right hydronephrosis. There is mildly delayed enhancement of the right kidney, consistent with obstructive uropathy. Imaging reviewed personally. Mild delay of enhancement with renal kidney. No biochemical evidence of obstruction. Creatinine in normal range. Imaging does suggest partial restriction with delay in flow. Intervention - right ureteroscopy with laser lithotripsy PFSH Medical History (Updated 05/08/25 @ 14:08 by Leon Jerez MD) Anxiety disorder Migraine headache Surgical History (Updated 04/28/25 @ 14:14 by Queta Molina RN) Hx of tonsillectomy Hx of arthroscopy of knee Family History Brother Substance use disorder Mental health disorder Social History Household Members: Spouse Housing: House Are you a primary career consultant to a significant other at home: No Do you presently have visiting nurse or other home services: No Alcohol intake: current Alcohol intake frequency: holidays/special occasions only Patient Tobacco Use Status: Never used Tobacco e-Cigarette/Vaping Use: Never Used service: No Current occupational status: retired Cognitive needs: No Hearing needs: No Vision needs: Yes Office Procedures Cystoscopy Consent Discussed risk and benefit or proposed procedure with the patient. Information consent for procedure given to the patient. Discussed technical aspects, risks, benefits and alternatives in full. Addressed all of the patient's questions and concerns regarding the procedure. The patient demonstrated knowledge and understanding. They wish to proceed with this procedure. Preparation The patient was prepped in the usual manner. A can sterilizer was present and in the room. Genitalia was prepped with betadine solution in a sterile manner. Lidocaine Jelly 2% was placed into the urethra and 16Fr flexible Olympus cystoscope was inserted into the meatus after adequate lubrication. Procedure A well lubricated 16 Slovak cystoscope was placed No abnormality noted of urethra during placement Indwelling stent seen within bladder emerging from right ureteric orifices The stent was grasped with a 3 prong grasper and removed without difficulty The patient tolerated the procedure well [id number] with stent removal DISPOSABLE SCOPE URO-G FLEXIBLE SCOPE Procedure code (CPT) selection complete Office Meds lidocaine HCl 2 % mucosal jelly in applicator Performing Provider: Leon Jerez MD Performing Location: [facility] Administered by: Stanley Love LPN on 05/08/25 13:51 Dose Route Admin Location Dispensed Lot Number Expiration Date [facility] Time Study Technician 10 mL intra-urethral 10 mL nitrofurantoin monohydrate/macrocrystals 100 mg capsule Performing Provider: Leon Jerez MD Performing Location: [facility] Administered by: Stanley Love LPN on 05/08/25 13:51 Dose Route Admin Location Dispensed Lot Number Expiration Date [facility] Time Study Technician 100 mg PO 1 cap naproxen 500 mg tablet Performing Provider: Leon Jerez MD Performing Location: [facility] Documented (not given) by: Stanley Love LPN on 05/08/25 13:51 Reason Not Given: No Longer Necessary Results AMB Urinalysis, Automated UA Leukoctes 125 Herber/uL Last Edit by TRACIE Alcala on 05/08/25 13:44 UA Nitrite Negative Last Edit by TRACIE Alcala on 05/08/25 13:44 UA Urobilinogen 0.2 mg/dL Last Edit by TRACIE Alcala on 05/08/25 13:44 UA Protein 300 mg/dL Last Edit by TRACIE Alcala on 05/08/25 13:44 UA pH 5.5 Last Edit by Sari Iniguez CCM on 05/08/25 13:44 UA Blood 200 Marcin/uL Last Edit by Sari IniguezJOSEPHA on 05/08/25 13:44 UA Specific [place] 1.030 Last Edit by [facility] on 05/08/25 13:44 UA Ketone Positive Last Edit by Sari Iniguez [facility] on 05/08/25 13:44 UA Bilirubin 0 mg/dL Last Edit by Sari Iniguez [facility] on 05/08/25 13:44 UA Glucose 0 mg/dL Last Edit by Sari Iniguez [facility] on 05/08/25 13:44 Results Reviewed Results Reviewed: Laboratory Last Values Urine pH (Auto) 5.5 05/08/25 13:43 Specific [place] (Auto) 1.030 05/08/25 13:43 Urine Protein (Auto) 300 mg/dL 05/08/25 13:43 Glucose (UA)(Auto) 0 mg/dL 05/08/25 13:43 Urine Ketones (Auto) Positive 05/08/25 13:43 Urine Blood (Auto) 200 Marcin/uL 05/08/25 13:43 Urine Nitrite (Auto) Negative 05/08/25 13:43 Urine Bilirubin (Auto) 0 mg/dL 05/08/25 13:43 Urine Urobilinogen (Auto) 0.2 mg/dL 05/08/25 13:43 Leukocyte Esterase (Auto) 125 Herber/uL 05/08/25 13:43 Assessment & Plan Assessment & Plan (1) Nephrolithiasis: Code(s): N20.0 - Calculus of kidney Category: Medical Plan Three-month follow-up nephrolithiasis renal ultrasound Orders: Orders AMB Cystoscopy Today N20.1 - Calculus of ureter Patient Instructions: This note is constructed using voice recognition software. 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 Imaging studies, laboratory and physical exam results were discussed and reviewed in detail. No major barriers to patient understanding were identified. An opportunity to ask questions regarding the treatment plan was provided. All questions were answered. The patient expressed understanding and agreement with the above treatment plan. The patient is aware they should contact our office by phone for worsening of their current condition or the appearance of new urologic symptoms. Compliance is encouraged with any medications and followup testing that is ordered. It is a privilege to participate in the urologic care of your patient. If you have any questions or concerns regarding treatment for the above conditions, or other urologic issues, please do not hesitate to contact me. The office telephone contact is [phone]. Sincerely, Dr Leon Jerez MD, [facility] - Urology Compassionate Specialist Care for the Genitourinary System Coding Level of Care Code Est Pt Level 3 (50996) Complex EM visit Add On G2211 Diagnoses Nephrolithiasis N20.0 CPT Codes Cystoscopy - CPT: 16967-[id number] with stent removal ([id number])
--- OUTSIDE RECORDS SUMMARY | 2025-05-08 16:24 | XMS_ITS | Data Portability ---
Author Organization [place] - [facility], Allergy Address [address] [address] Assessment No assessment recorded. Plan of Treatment [...] Sensorine ural hearing loss of bilateral ears [id number] Active 2022 Sensorine ural hearing loss, bilateral ; Note: Date Diagnosed : 04/05/2023 10:13 AM (H90.3) Not Available [facility] 03:24:21 Bilateral tinnitus [id number] 02 Active 2022 Tinnitus, bilateral ; Note: Date Diagnosed : 04/05/2023 10:13 AM (H93.13) Not Available [facility] 03:24:21 Problem Notes None recorded. Medical Equipment [...] ICD10 Code Diagnosis IMO Codes Diagnosis Note [id number] AURELIO FITZPATRICK [facility]RO[facility] [place] [address] [place], [place] [address]ELLEN [address] 02/09/2024 10:39:41 02/12/2024 07:15:44 Sensorineural hearing loss of bilateral ears [id number] H90.3 [id number] AURELIO FITZPATRICK [place]RO[facility] [place] [address] [facility],[place] [address] [place] [address] 05/03/2024 13:41:10 05/06/2024 07:06:28 Sensorineural hearing loss of bilateral ears [id number] H90.3 Health Concerns Section Related Observation LastModified by Organization Detai ls LastModified Time None Recorded Concern Status LastModified by Organization Details LastModified Time None Recorded Advance Directives Directive None Recorded Payers Insurance Date Sequence Insurance Name Policy Number Policy Jones Covered Member ID Jones Member ID Guarantor Name 03/28/2025 2 [employer] (MEDICARE SUPPLEMENT) Vivian Shepard [id number] Vivian Shepard 03/28/2025 1 MEDICARE B-[place]: [facility] [employer] Vivian Shepard [id number] Vivian Shepard Notes Date Note Type Note [...] more as well. CHRIS AURELIO HUERTA [address] [facility] [address], [place], [address], [facility] - [facility] 02/09/2024 11:03:02 05/03/2024 text/html Checking datalogging to [...] done today. Firmware updated.FU: Annuals. CHRIS HUERTA, [facility] [address] [facility],[place] [address], [place], [address], [place] - [facility] 05/03/2024 14:07:43 OBGyn Episode No OBEpisode recorded.
== END 2025-05-08 14:14 | disposition home or self-care (01) ==
LOC: HO.HUSH 13:29
PROVIDERS: PCP Internal Medicine; Visit Provider Urology
DX: N20.2 Calculus of kidney with calculus of ureter (principal)
CPT/HCPCS: 52310; 99213

== ENCOUNTER → 2025-05-08 13:28 | Outpatient (BNVA) | payer MEDICARE, SELFPAY | PROVIDERS: PCP Internal Medicine; Visit Provider Urology | DX: Z46.6 Encounter for fitting and adjustment of urinary device (principal); N20.0 Calculus of kidney; N20.1 Calculus of ureter; Z98.890 Other specified postprocedural states | CPT/HCPCS: 52310; 99212 ==